=== PATIENT | female | born 1935 | race Caucasian/White ===

== ENCOUNTER 2016-10-19 17:15 | Emergency (ER) | payer MEDICARE, OTHER ==
[~2016-10-19] VITALS: Ht 165.1 cm; Wt 65.9 kg
[~2016-10-19 17:15] MED LIST: CALC500T21 OR; GLUC500C3 PO; MAGN30TA2; MAGN500T2; OCUVTAB PO; TRUS2SOL OU; VITA-13; VITA400C70 PO; [UNRECOGNIZED DRUG - OTHER] PO
[2016-10-19 17:19] VITALS: BP 226/93; PULSE 67; RESP 24; TEMP 97.4; O2SAT 97
[2017-03-11] MEDS ORDERED: OCUVTAB PO (15:41)
[2017-03-11] MEDS ORDERED: MAGN1TAB14 PO (15:41)
[2017-03-11] MEDS ORDERED: CALC1TAB12 PO (15:41)
[2017-03-11] MEDS ORDERED: DORZ2SOL15 EACH EYE (15:41)
[2017-03-11] MEDS ORDERED: TH GCAP PO (15:41)
[2017-03-11] MEDS ORDERED: BIOT1CAP2 PO (15:41)
[2017-03-11] MEDS ORDERED: VITA200C3 PO (15:41)
[2017-03-11] MEDS ORDERED: MULT1TAB46 (15:41)
== END 2016-10-19 19:22 | disposition left against medical advice (07) ==
LOC: NED 17:15
DX: R68.89 Other general symptoms and signs (principal)
CPT/HCPCS: 99281

== ENCOUNTER 2017-08-22 18:44 | Inpatient (IN) | payer MEDICARE, OTHER ==
[~2017-08-22] VITALS: Ht 165.1 cm; Wt 68.0 kg
[~2017-08-22 18:44] MED LIST changes: +BIOT1CAP2 PO; +CALC1TAB12 PO; -CALC500T21 OR; +DORZ2SOL15 EACH EYE; -GLUC500C3 PO; -MAGN30TA2; +MAGN400T3 PO; -MAGN500T2; +MULT1TAB46; +TH GCAP PO; -TRUS2SOL OU; -VITA-13; +VITA200C3 PO; -VITA400C70 PO
[2017-08-22 19:13] VITALS: BP 187/82; PULSE 66; RESP 16; TEMP 97.7; O2SAT 99
[2017-08-22 19:14] VITALS: PULSE 66; RESP 16; O2SAT 99
[2017-08-22] MEDS ORDERED: MORPHINE SULFATE 4 MG/ML INJ IV PUSH ONE (19:15)
[2017-08-22] MEDS ORDERED: SODIUM CHLORIDE 0.9% FLUSH 10 ML FLUSH IV FLUSH PRN ×2 (19:15→23:15)
[2017-08-22] MEDS ORDERED: ONDANSETRON HCL 4 MG/2 ML VIAL IVP ONE (19:15)
[2017-08-22 19:33] LABS: AUTOMATED NEUTROPHIL # 7.2 TH/MM3 (1.8-7.7); BASOPHIL % 0.5 % (0.0-2.0); EOSINOPHIL # 0.2 TH/MM3 (0-0.4); EOSINOPHIL % 2.3 % (0.0-4.0); HEMATOCRIT 41.2 % (35.0-46.0); HEMO FLAGS DIFF FINAL; LYMPH % 11.1 % (9.0-44.0); MEAN CELL VOLUME 92.3 FL (80.0-100.0); MEAN CORPUSCULAR HEMOGLOBIN 31.2 PG (27.0-34.0); MEAN CORPUSCULAR HGB CONC 33.8 % (32.0-36.0); MONO % 8.3 % (0.0-8.0); NEUT % 77.8 % (16.0-70.0); PLATELET COUNT 234 TH/MM3 (150-450); RED BLOOD COUNT 4.46 MIL/MM3 (4.00-5.30); RED CELL DISTRIBUTION WIDTH 13.9 % (11.6-17.2); WHITE BLOOD COUNT 9.2 TH/MM3 (4.0-11.0)
[2017-08-22 19:51] LABS: ANION GAP 7 MEQ/L (5-15); AST (GOT) 28 U/L (15-37); BICARBONATE 26.8 MEQ/L (21.0-32.0); BLOOD UREA NITROGEN 27 MG/DL (7-18); CHLORIDE 103 MEQ/L (98-107); GLOMERULAR FILTRATION RATE 42 ML/MIN (>89); POTASSIUM 3.5 MEQ/L (3.5-5.1); SODIUM (NA) 137 MEQ/L (136-145)
--- NOTE | 2017-08-22 19:51 | PD ---
HPI . Abdominal pain Chief Complaint: GI Complaint Time Seen by Provider: 19:28 Travel History International Travel<30 days: No Contact w/Intl Traveler<30days: No Traveled to known affect area: No History of Present Illness HPI Patient presents with chief complaint of upper abdominal pain. Onset was at 1: 30 PM today. She describes sharp pain which is "extreme." It is associated with 1 episode of vomiting. The vomiting did help her pain. Her pain is a more significant complaint for her than vomiting. She has an ostomy bag. She states that it has been functioning fairly normally. She states that her stool output is diminished but is present. She has not noted any abdominal bloating. Patient states that she has the colonoscopy because of ulcerative colitis. She further reports a history of previous small bowel obstructions. PFSH Past Medical History Arthritis: Yes Autoimmune Disease: No Blood Disorders: No Anxiety: Yes Depression: No Heart Rhythm Problems: No Cancer: No Cardiac Catheterization: No Cardiovascular Problems: No High Cholesterol: No Chemotherapy: No Chest Pain: No Congestive Heart Failure: No Diabetes: No Diminished Hearing: No Endocrine: No Gastrointestinal Disorders: Yes (ulcerative colitis) GERD: No Glaucoma: Yes Genitourinary: No Hepatitis: No Hiatal Hernia: No Hypertension: No Immune Disorder: No Implanted Vascular Access Dvce: Yes Medical other: Yes (ILEOSTOMY) Musculoskeletal: Yes Neurologic: No Psychiatric: No Reproductive: No Respiratory: No Myocardial Infarction: No Radiation Therapy: No Thyroid Disease: No Ulcer: No Menopausal: Yes Past Surgical History Abdominal Surgery: Yes (ILEOSTOMY) AICD: No Arteriovenous Shunt: No Cardiac Surgery: No Coronary Artery Bypass Graft: No Ear Surgery: No Endocrine Surgery: No Eye Surgery: Yes (GREGORY CATARACTS REMOVED) Genitourinary Surgery: No Gynecologic Surgery: Yes (left breast lumpectomy surgery for gregory ovarian cyst AND RIGHT BREAT LUMPEC ) Hysterectomy: Yes Insulin Pump: No Joint Replacement: Yes (right hip hardware) Neurologic Surgery: No Oral Surgery: No Pacemaker: No Thoracic Surgery: No Other Surgery: Yes (HIP SURGERY,1993,HYSTERECTOMY) Social History Alcohol Use: No Tobacco Use: No Substance Use: No Allergies-Medications (Allergen,Severity, Reaction): Coded Allergies: bacitracin (Unverified Allergy, Mild, 04/27/17) unknown reaction gramicidin D (Unverified Allergy, Mild, 04/27/17) unknown reaction neomycin (Unverified Allergy, Mild, 04/27/17) unknown reaction polymyxin B (Unverified Allergy, Mild, 04/27/17) unknown reaction hydromorphone (Unverified Adverse Reaction, Intermediate, nausea / dizzy, 04/27/17) Reported Meds & Prescriptions Reported Meds & Active Scripts Active Reported Biotin 1 Mg Cap 1 Mg PO Glucosamine & Chondroitin Cap (Glucosam/Chondr/Collagn/Hyalur) 1 Each Capsule 2 Tab PO DAILY Magnesium 400 Mg Tab 1,000 Mg PO DAILY Multi Vitamin Daily (Multiple Vitamin) 1 Tab Tab Vitamin E 200 Unit Cap 400 Units PO DAILY Calcium 500 +D (Calcium Carbonate-Cholecalciferol) 500-400 Mg-Unit Tab 1 Tab PO BID Ocuvite (Multiple Vitamins W/ Minerals) 1 Tab 1 Tab PO DAILY Dorzolamide-Timolol Opth Drops 22.3-6.8 Mg/Ml Soln 1 Drop EACH EYE BID [juice plus capsules] PO DAILY Review of Systems Except as stated in HPI: all other systems reviewed are Neg General / Constitutional: No: Fever, Chills Respiratory: No: Cough, Shortness of Breath Gastrointestinal: Positive: Nausea, Vomiting, Abdominal Pain, No: Diarrhea Genitourinary: No: Urgency, Frequency, Dysuria Physical Exam Narrative GENERAL: Awake and alert. She appears to be in mild to moderate distress. SKIN: warm/dry. Good color and turgor. HEAD: Normocephalic. Atraumatic. EYES: Pupils equal and round. No scleral icterus. No injection or drainage. ENT: No nasal bleeding or discharge. Mucous membranes pink and moist. NECK: Trachea midline. Full range of motion without pain.. CARDIOVASCULAR: Regular rate and rhythm. Heart sounds normal. RESPIRATORY: No accessory muscle use. Clear to auscultation. Breath sounds equal bilaterally. GASTROINTESTINAL: Abdomen soft. Diffuse upper abdominal tenderness which is mild. Bowel sounds increased. Nondistended. MUSCULOSKELETAL: No obvious deformities. NEUROLOGICAL: Awake and alert. No obvious cranial nerve deficits. Motor grossly within normal limits. Normal speech. PSYCHIATRIC: Appropriate mood and affect; insight and judgment normal. Data Data Last Documented VS Vital Signs Date Time Temp Pulse Resp B/P (MAP) Pulse Ox O2 Delivery O2 Flow Rate FiO2 08/22/17 19:14 66 16 99 08/22/17 19:13 97.7 Orders Orders Complete Blood Count With Diff (08/22/17 19:11) Comprehensive Metabolic Panel (08/22/17 19:11) Urinalysis - C+S If Indicated (08/22/17 19:11) Iv Access Insert/Monitor (08/22/17 19:11) Oxygen Administration (08/22/17 19:11) Oximetry (08/22/17 19:11) Lipase (08/22/17 19:11) Ct Abd/Pel W Iv Contrast(Rout) (08/22/17 19:11) Ecg Monitoring (08/22/17 19:11) Morphine Inj (Morphine Inj) (08/22/17 19:15) Ondansetron Inj (Zofran Inj) (08/22/17 19:15) Sodium Chloride 0.9% Flush (Ns Flush) (08/22/17 19:15) Sodium Chlor 0.9% 1000 Ml Inj (Ns 1000 M (08/22/17 20:30) Iohexol 350 Inj (Omnipaque 350 Inj) (08/22/17 21:04) Admit Order (Ed Use Only) (08/22/17 ) Vital Signs (Adult) Q4H (08/22/17 22:34) Diet Npo (08/23/17 Breakfast) Activity Oob With Assistance (08/22/17 22:34) Notify Dr: Other (08/22/17 22:34) Labs Laboratory Tests Test 08/22/17 19:14 08/22/17 21:10 White Blood Count 9.2 TH/MM3 Red Blood Count 4.46 MIL/MM3 Hemoglobin 13.9 GM/DL Hematocrit 41.2 % Mean Corpuscular Volume 92.3 FL Mean Corpuscular Hemoglobin 31.2 PG Mean Corpuscular Hemoglobin Concent 33.8 % Red Cell Distribution Width 13.9 % Platelet Count 234 TH/MM3 Mean Platelet Volume 8.5 FL Neutrophils (%) (Auto) 77.8 % Lymphocytes (%) (Auto) 11.1 % Monocytes (%) (Auto) 8.3 % Eosinophils (%) (Auto) 2.3 % Basophils (%) (Auto) 0.5 % Neutrophils # (Auto) 7.2 TH/MM3 Lymphocytes # (Auto) 1.0 TH/MM3 Monocytes # (Auto) 0.8 TH/MM3 Eosinophils # (Auto) 0.2 TH/MM3 Basophils # (Auto) 0.0 TH/MM3 CBC Comment DIFF FINAL Differential Comment Blood Urea Nitrogen 27 MG/DL Creatinine 1.22 MG/DL Random Glucose 131 MG/DL Total Protein 7.1 GM/DL Albumin 3.1 GM/DL Calcium Level 8.2 MG/DL Alkaline Phosphatase 80 U/L Aspartate Amino Transf (AST/SGOT) 28 U/L Alanine Aminotransferase (ALT/SGPT) 30 U/L Total Bilirubin 0.2 MG/DL Sodium Level 137 MEQ/L Potassium Level 3.5 MEQ/L Chloride Level 103 MEQ/L Carbon Dioxide Level 26.8 MEQ/L Anion Gap 7 MEQ/L Estimat Glomerular Filtration Rate 42 ML/MIN Lipase 399 U/L Urine Color YELLOW Urine Turbidity CLEAR Urine pH 5.0 Urine Specific [place] 1.035 Urine Protein TRACE mg/dL Urine Glucose (UA) NEG mg/dL Urine Ketones NEG mg/dL Urine Occult Blood SMALL Urine Nitrite NEG Urine Bilirubin NEG Urine Urobilinogen LESS THAN 2.0 MG/DL Urine Leukocyte Esterase NEG Urine RBC 1 /hpf Urine WBC 1 /hpf Urine Squamous Epithelial Cells <1 /hpf Urine Hyaline Casts 1 /lpf Urine Mucus FEW /lpf Microscopic Urinalysis Comment CULT NOT INDICATED MDM Medical Decision Making Medical Screen Exam Complete: Yes Emergency Medical Condition: Yes Differential Diagnosis Differential diagnosis of abdominal pain includes but is not limited to gastritis, pancreatitis, hepatitis, gastroenteritis, gallbladder disease, constipation, urinary retention, UTI, peptic ulcer disease, diverticulitis or appendicitis Narrative Course This patient presents complaining with upper abdominal pain associated with one episode of emesis. She has an ostomy bag secondary to ulcerative colitis. She has had a previous bowel obstruction. Routine labs have been ordered as well as a CT to rule out obstruction. Her pain will be treated with morphine/Zofran. CBC & BMP Diagram 08/22/17 19:14 Total Protein 7.1, Albumin 3.1 L, Calcium Level 8.2 L, Alkaline Phosphatase 80, Aspartate Amino Transf (AST/SGOT) 28, Alanine Aminotransferase (ALT/SGPT) 30, Total Bilirubin 0.2 lip 399 Renal function studies are relatively stable for this patient. Last Impressions Abdomen/Pelvis CT 08/22/17 191 Signed Impressions: Service Date/Time: Tuesday, August 22, 2017 20:38 - CONCLUSION: 1. 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 2. Status post colectomy. 3. Cystic areas in the left lobe of the liver. 4. Status post vertebroplasty. 5. Status post right hip arthroplasty. Jack Christopher MD She will be admitted for further evaluation of this abnormal CT. Diagnosis Primary Impression: Abdominal pain Qualified Codes: R10.10 - Upper abdominal pain, unspecified Admitting Information Admitting Physician Requests: Admit Condition: Stable Bianca Irby MD Aug 22, 2017 19:51
[2017-08-22 19:56] LABS: ALKALINE PHOSPHATASE 80 U/L (45-117); ALT (GPT) 30 U/L (10-53); TOTAL BILIRUBIN ADULT 0.2 MG/DL (0.2-1.0)
[2017-08-22] MEDS ORDERED: SODIUM CHLOR 0.9% 1000 ML INJ 1,000 ML IV ONE (20:30)
[2017-08-22] MEDS ORDERED: IOHEXOL 350 MG/ML 10 ML VIAL (for RAD DIAG) IVCONTRAST ONE (21:04)
[2017-08-22 21:33] LABS: BLOOD, URINE SMALL (NEG); COMMENT (UR) CULT NOT INDICATED; CULTURE IF INDICATED CULT NOT INDICATED; GLUCOSE,URINE NEG (NEG); HYALINE CAST, URINE 1 /lpf (RARE); KETONE, URINE NEG (NEG); MUCUS URINE FEW /lpf (OCC); NITRITE,URINE NEG (NEG); SQUAMOUS EPITHELIAL CELL URINE <1 /hpf (0-5); URINE COLOR YELLOW (YELLW/STRAW)
--- NOTE | 2017-08-22 21:38 | RADRPT ---
EXAM DATE/TIME: 08/22/2017 20:38 [facility] COMPARISON: CT ABDOMEN & PELVIS W CONTRAST, August 24, 2015, 14:43. INDICATIONS : Right sided pain surrounding patient's ileostomy. IV CONTRAST: 75 cc Omnipaque 350 (iohexol) IV ORAL CONTRAST: No oral contrast ingested. RADIATION DOSE: 6.64 CTDIvol (mGy) MEDICAL HISTORY : None SURGICAL HISTORY : Hysterectomy. Ileostomy, left breast lumpectomy ENCOUNTER: Initial ACUITY: 1 day PAIN SCALE: 7/10 LOCATION: Right abdomen TECHNIQUE: Volumetric scanning of the abdomen and pelvis was performed. Using automated exposure control and ad justment of the mA and/or kV according to patient size, radiation dose was kept as low as reasonably achievable to obtain optimal diagnostic quality images. DICOM format image data is available electro nically for review and comparison. FINDINGS: LOWER LUNGS: The visualized lower lungs are clear. LIVER: There are 2 adjacent cysts at the medial segment of the left lobe of the liver measuring up to 2.2 cm . There is minimal intrahepatic biliary duct dilatation. There is a 8.0 x 4.4 x 4.7 cm cystic area se en in the right lower quadrant in a hernia adjacent to an ileostomy. The gallbladder is not seen in i ts normal location. This likely represents the gallbladder displaced into the hernia. If this is the case, the gallbladder is distended. SPLEEN: Normal size without lesion. PANCREAS: Within normal limits. KIDNEYS: Normal in size and shape. There is no mass, stone or hydronephrosis. ADRENAL GLANDS: Within normal limits. VASCULAR: There is no aortic aneurysm. There are scattered arterial calcification seen throughout the arterial system. 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 The celiac artery appears grossly normal. BOWEL/MESENTERY: There is an ileostomy in the right lower quadrant. The patient is status post colectomy. There is billy e bowel seen adjacent to the ostomy consistent with a hernia containing nondistended small bowel. Aga in noted is a cystic area in the hernia thought to likely be related to the gallbladder. Significantl y dilated small bowel is not seen. ABDOMINAL WALL: Again noted is the ileostomy site in the right lower quadrant. There is a hernia defect measuring up to 3.9 cm in the right lower quadrant in the region of the ostomy. RETROPERITONEUM: There is no lymphadenopathy. BLADDER: No wall thickening or mass. REPRODUCTIVE: The patient is status post hysterectomy. INGUINAL: There is no lymphadenopathy or hernia. MUSCULOSKELETAL: The patient is status post vertebroplasty at L4. There is a right hip prosthesis present. CONCLUSION: 1. 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 2. Status post colectomy. 3. Cystic areas in the left lobe of the liver. 4. Status post vertebroplasty. 5. Status post right hip arthroplasty. Jack Christopher MD on August 22, 2017 at 21:23 Board Certified Radiologist. This report was verified electronically.
[2017-08-22 22:00] VITALS: BP 188/76; PULSE 66; RESP 16; O2SAT 99
[2017-08-22] MEDS ORDERED: ACETAMINOPHEN 325 MG TAB PO PRN (23:15)
[2017-08-22] MEDS ORDERED: SENNOSIDES 8.6 MG TAB PO PRN (23:15)
[2017-08-22] MEDS ORDERED: MAGNESIUM HYDROXIDE SUSP 30 ML CUP PO PRN (23:15)
[2017-08-22] MEDS ORDERED: LACTULOSE SYRUP 20 GM/30 ML CUP PO PRN (23:15)
[2017-08-22] MEDS ORDERED: NALOXONE HCL 0.4 MG/ML AMP IV PUSH PRN (23:15)
[2017-08-22] MEDS ORDERED: BISACODYL 10 MG SUPP RECTAL PRN (23:15)
[2017-08-22] MEDS: SODIUM CHLOR 0.9% 1000 ML INJ 1,000 ML IV SCH (23:30)
--- NOTE | 2017-08-22 23:55 | HHI.HP ---
[facility] Service [place] [facility] Primary Care Physician Evan Mccurdy MD Admission Diagnosis abd pain, vomiting, ? hernia containing gallbladder Diagnoses: Travel History International Travel<30 Days: No Contact w/Intl Traveler <30 Da: No Traveled to Known Affected Are: No History of Present Illness 82-year-old female with a past medical history significant for ulcerative colitis presents with severe onset of abdominal pain. The patient reports she was eating lunch when she had intractable abdominal pain. Denies nausea/ emesis. She states the pain is in her right lower quadrant and is steady. She is status post colectomy with ileostomy in 2011 for ulcerative colitis. She has a known peristomal hernia that she has previously had evaluated and was told it was nonoperable. CT of the abdomen and pelvis revealed a peristomal hernia and low right lower quadrant containing nondistended small bowel and displaced distended gallbladder and the hernia sac. Review of Systems Denies fever or chills Denies blurry vision, otorrhea, rhinorrhea Denies sore throat and cough No chest pain, palpitations, shortness of breath Positive abdominal pain Denies constipation/diarrhea/nausea/vomiting Denies muscle pain/weakness No rashes Past Family Social History Past Medical History Ulcerative colitis Glaucoma Past Surgical History Colectomy with end ileostomy Hysterectomy Right hip replacement Reported Medications Reported Meds & Active Scripts Active Reported Biotin 1 Mg Cap 1 Mg PO Glucosamine & Chondroitin Cap (Glucosam/Chondr/Collagn/Hyalur) 1 Each Capsule 2 Tab PO DAILY Magnesium 400 Mg Tab 1,000 Mg PO DAILY Multi Vitamin Daily (Multiple Vitamin) 1 Tab Tab Vitamin E 200 Unit Cap 400 Units PO DAILY Calcium 500 +D (Calcium Carbonate-Cholecalciferol) 500-400 Mg-Unit Tab 1 Tab PO BID Ocuvite (Multiple Vitamins W/ Minerals) 1 Tab 1 Tab PO DAILY Dorzolamide-Timolol Opth Drops 22.3-6.8 Mg/Ml Soln 1 Drop EACH EYE BID Allergies: Coded Allergies: bacitracin (Unverified Allergy, Mild, 04/27/17) unknown reaction gramicidin D (Unverified Allergy, Mild, 04/27/17) unknown reaction neomycin (Unverified Allergy, Mild, 04/27/17) unknown reaction polymyxin B (Unverified Allergy, Mild, 04/27/17) unknown reaction hydromorphone (Unverified Adverse Reaction, Intermediate, nausea / dizzy, 04/27/17) Family History Denies family history of coronary artery disease or diabetes mellitus Social History Rare alcohol. Never smoker. Denies illicit drugs. Physical Exam Vital Signs Vital Signs Date Time Temp Pulse Resp B/P (MAP) Pulse Ox O2 Delivery O2 Flow Rate FiO2 08/22/17 22:00 66 16 188/76 (113) 99 08/22/17 19:14 66 16 99 08/22/17 19:13 97.7 66 16 187/82 (117) 99 Physical Exam GENERAL: female lying in bed SKIN: No rashes, ecchymoses or lesions. Cool and dry. HEAD: Atraumatic. Normocephalic. No temporal or scalp tenderness. EYES: Pupils equal round and reactive. Extraocular motions intact. No scleral icterus. No injection or drainage. ENT: Nose without bleeding, purulent drainage or septal hematoma. Throat without erythema, tonsillar hypertrophy or exudate. Uvula midline. Airway patent. NECK: Trachea midline. No JVD or lymphadenopathy. Supple, nontender, no meningeal signs. CARDIOVASCULAR: Regular rate and rhythm without murmurs, gallops, or rubs. RESPIRATORY: Clear to auscultation. Breath sounds equal bilaterally. No wheezes , rales, or rhonchi. GASTROINTESTINAL: Nondistended. Exquisitely tender to palpation in the right lower quadrant. Palpable mass in the right lower quadrant adjacent to stoma. Ileostomy in place, pink with stool output. MUSCULOSKELETAL: Extremities without clubbing, cyanosis, or edema. No joint tenderness, effusion, or edema noted. No calf tenderness. NEUROLOGICAL: Awake and alert. Cranial nerves II through XII intact. Motor and sensory grossly within normal limits. Normal speech. Laboratory Laboratory Tests Test 08/22/17 19:14 08/22/17 21:10 White Blood Count 9.2 Red Blood Count 4.46 Hemoglobin 13.9 Hematocrit 41.2 Mean Corpuscular Volume 92.3 Mean Corpuscular Hemoglobin 31.2 Mean Corpuscular Hemoglobin Concent 33.8 Red Cell Distribution Width 13.9 Platelet Count 234 Mean Platelet Volume 8.5 Neutrophils (%) (Auto) 77.8 Lymphocytes (%) (Auto) 11.1 Monocytes (%) (Auto) 8.3 Eosinophils (%) (Auto) 2.3 Basophils (%) (Auto) 0.5 Neutrophils # (Auto) 7.2 Lymphocytes # (Auto) 1.0 Monocytes # (Auto) 0.8 Eosinophils # (Auto) 0.2 Basophils # (Auto) 0.0 CBC Comment DIFF FINAL Differential Comment Blood Urea Nitrogen 27 Creatinine 1.22 Random Glucose 131 Total Protein 7.1 Albumin 3.1 Calcium Level 8.2 Alkaline Phosphatase 80 Aspartate Amino Transf (AST/SGOT) 28 Alanine Aminotransferase (ALT/SGPT) 30 Total Bilirubin 0.2 Sodium Level 137 Potassium Level 3.5 Chloride Level 103 Carbon Dioxide Level 26.8 Anion Gap 7 Estimat Glomerular Filtration Rate 42 Lipase 399 Urine Color YELLOW Urine Turbidity CLEAR Urine pH 5.0 Urine Specific [place] 1.035 Urine Protein TRACE Urine Glucose (UA) NEG Urine Ketones NEG Urine Occult Blood SMALL Urine Nitrite NEG Urine Bilirubin NEG Urine Urobilinogen LESS THAN 2.0 Urine Leukocyte Esterase NEG Urine RBC 1 Urine WBC 1 Urine Squamous Epithelial Cells <1 Urine Hyaline Casts 1 Urine Mucus FEW Microscopic Urinalysis Comment CULT NOT INDICATED Result Diagram: 08/22/17191308/22/171913 Caprini VTE Risk Assessment Caprini VTE Risk Assessment: Mod/High Risk (score >= 2) Caprini Risk Assessment Model Point Value = 1 Point Value = 2 Point Value = 3 Point Value = 5 Age 41-60 Minor surgery BMI > 25 kg/m2 Swollen legs Varicose veins or History of unexplained or recurrent spontaneous Oral contraceptives or hormone replacement Sepsis (< 1 month) Serious lung disease, including pneumonia (< 1 month) Abnormal pulmonary function Acute myocardial infarction Congestive heart failure (< 1 month) History of inflammatory bowel disease Medical patient at bed rest Age 61-74 Arthroscopic surgery Major open surgery (> 45 min) Laparoscopic surgery (> 45 min) Malignancy Confined to bed (> 72 hours) Immobilizing plaster cast Central venous access Age >= 75 History of VTE Family history of VTE Factor V Leiden Prothrombin [id number] Lupus anticoagulant Anticardiolipin antibodies Elevated serum homocysteine Heparin-induced thrombocytopenia Other congenital or acquired thrombophilia Stroke (< 1 month) Elective arthroplasty Hip, pelvis, or leg fracture Acute spinal cord injury (< 1 month) Prophylaxis Regimen Total Risk Factor Score Risk Level Prophylaxis Regimen 0-1 Low Early ambulation 2 Moderate Order ONE of the following: *Sequential Compression Device (SCD) *Heparin 5000 units SQ BID 3-4 Higher Order ONE of the following medications: *Heparin 5000 units SQ TID *Enoxaparin/Lovenox 40 mg SQ daily (WT < 150 kg, CrCl > 30 mL/min) *Enoxaparin/Lovenox 30 mg SQ daily (WT < 150 kg, CrCl > 10-29 mL/min) *Enoxaparin/Lovenox 30 mg SQ BID (WT < 150 kg, CrCl > 30 mL/min) AND/OR *Sequential Compression Device (SCD) 5 or more Highest Order ONE of the following medications: *Heparin 5000 units SQ TID (Preferred with Epidurals) *Enoxaparin/Lovenox 40 mg SQ daily (WT < 150 kg, CrCl > 30 mL/min) *Enoxaparin/Lovenox 30 mg SQ daily (WT < 150 kg, CrCl > 10-29 mL/min) *Enoxaparin/Lovenox 30 mg SQ BID (WT < 150 kg, CrCl > 30 mL/min) AND *Sequential Compression Device (SCD) Assessment and Plan Assessment and Plan Assessment/plan: 1. Intractable abdominal pain/peristomal hernia CT abdomen/pelvis significant for peristomal hernia containing nondistended small bowel and displaced distended gallbladder and the hernia sac Pain control with morphine Nothing by mouth General surgery consulted, appreciate recommendations 2. Glaucoma Continue home eyedrops 3. CKD Cr 1.22, baseline for patient Avoid nephrotoxic agents Monitor renal function FEN NPO NS at 75 cc/hr Electrolytes: monitor and replete prn SCDs Case discussed with ER physician at length Physician Certification 2 Midnight Certification Type: Admission for Inpatient Services Order for Inpatient Services The services are ordered in accordance with Medicare regulations or non- Medicare payer requirements, as applicable. In the case of services not specified as inpatient-only, they are appropriately provided as inpatient services in accordance with the 2-midnight benchmark. Estimated LOS (days): 2 2 days is the estimated time the patient will need to remain in the hospital, assuming treatment plan goals are met and no additional complications. Post-Hospital Plan: Not yet determined Tyra Temple MD Aug 22, 2017 23:55
[2017-08-23] VITALS: BP 162/67; PULSE 70; RESP 17; TEMP 96.1; O2SAT 98
[2017-08-23] MEDS: ONDANSETRON HCL 4 MG/2 ML VIAL IVP PRN ×2 (01:03→09:13)
[2017-08-23] MEDS: MORPHINE SULFATE 2 MG/ML INJ IV PUSH PRN ×5 (01:06→18:45)
[2017-08-23 07:58] LABS: BASOPHIL % 0.1 % (0.0-2.0); EOSINOPHIL % 0.2 % (0.0-4.0); HEMATOCRIT 37.2 % (35.0-46.0); HEMO FLAGS DIFF FINAL; LYMPH % 9.2 % (9.0-44.0); LYMPHOCYTE # 0.8 TH/MM3 (1.0-4.8); MEAN CELL VOLUME 92.1 FL (80.0-100.0); MEAN CORPUSCULAR HGB CONC 34.7 % (32.0-36.0); MONO % 10.2 % (0.0-8.0); NEUT % 80.3 % (16.0-70.0); PLATELET COUNT 189 TH/MM3 (150-450); RED BLOOD COUNT 4.04 MIL/MM3 (4.00-5.30); RED CELL DISTRIBUTION WIDTH 13.9 % (11.6-17.2); WHITE BLOOD COUNT 8.7 TH/MM3 (4.0-11.0)
[2017-08-23 08:00] VITALS: BP 151/66; PULSE 72; RESP 16; TEMP 98.1; O2SAT 93
[2017-08-23] MEDS: DOCUSATE SODIUM 50 MG/SENNA 8.6 MG TAB PO SCH ×2 (08:14→21:00)
[2017-08-23] MEDS: SODIUM CHLORIDE 0.9% FLUSH 10 ML FLUSH IV FLUSH SCH ×2 (08:14→21:00)
[2017-08-23 08:46] LABS: ALKALINE PHOSPHATASE 99 U/L (45-117); ALT (GPT) 51 U/L (10-53); ANION GAP 6 MEQ/L (5-15); AST (GOT) 68 U/L (15-37); BICARBONATE 26.5 MEQ/L (21.0-32.0); BLOOD UREA NITROGEN 17 MG/DL (7-18); CHLORIDE 107 MEQ/L (98-107); GLOMERULAR FILTRATION RATE 58 ML/MIN (>89); POTASSIUM 3.5 MEQ/L (3.5-5.1); SODIUM (NA) 139 MEQ/L (136-145); TOTAL BILIRUBIN ADULT 0.6 MG/DL (0.2-1.0)
--- NOTE | 2017-08-23 09:27 | HHI.PR ---
Subjective Remarks Not Seen I have been notified the patient will be seen by Her Primary Care Physician today. removed from my list. Objective Result Diagram: 08/23/17 0643 08/23/17 0643 Aditya Botello MD Aug 23, 2017 09:27
[2017-08-23] MEDS: DORZOLAMIDE/TIMOLOL OPTH SOLN 10 ML BTL EACH EYE SCH ×2 (11:43→22:56)
[2017-08-23 12:00] VITALS: BP 179/74; PULSE 70; RESP 17; TEMP 97.3; O2SAT 95
[2017-08-23] MEDS: SODIUM CHLOR 0.9% 1000 ML INJ 1,000 ML IV SCH (13:01)
--- NOTE | 2017-08-23 13:24 | PD.CONS ---
cc: Mykel Ferrer MD; Freedom Brambila MD; Evan Mccurdy MD [facility] Service Dr. Ferrer Consultation note General Surgery Consult Requested By Dr. 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 Brambila, small bowel obstruction, arthritis, anxiety and glaucoma. She was in her normal state of health until yesterday at 1:30pm after eating lunch. She developed sharp, sudden abdominal pain with nausea and one episode of emesis. Since this episode she has noticed a decrease in her ileostomy output. A CT abdomen and pelvis was obtained which shows an ileostomy in the right lower quadrant with a parastomal hernia which contains the gallbladder in the hernia sac. A General Surgery consultation has been requested. Review of Systems Constitutional: COMPLAINS OF: Change in appetite, DENIES: Fatigue Endocrine: DENIES: Polydipsia, Polyuria Eyes: DENIES: Diplopia Ears, nose, mouth, throat: DENIES: Hearing loss Respiratory: DENIES: Cough Cardiovascular: DENIES: Chest pain Gastrointestinal: COMPLAINS OF: Abdominal pain ( right upper quadrant), Nausea , Vomiting Genitourinary: DENIES: Urinary frequency Musculoskeletal: DENIES: Joint Swelling Integumentary: DENIES: Pruritus Hematologic/lymphatic: DENIES: Bruising Immunologic/allergic: DENIES: Eczema Neurologic: DENIES: Abnormal gait, Headache Psychiatric: DENIES: Mood changes, Depression, Hallucinations Past Family Social History Past Medical History Ulcerative colitis Small bowel obstruction Arthritis Anxiety Glaucoma Past Surgical History Protocolectomy [place] [address] Brambila Left breast lumpectomy by Dr. Ferrer Right hip replacement History Reported Medications Calcium Magnesium Biotene Vitamin E Multivitamin Glucosamine Dorzolamide-Timolol Allergies: Coded Allergies: bacitracin (Unverified Allergy, Mild, 04/27/17) unknown reaction gramicidin D (Unverified Allergy, Mild, 04/27/17) unknown reaction neomycin (Unverified Allergy, Mild, 04/27/17) unknown reaction polymyxin B (Unverified Allergy, Mild, 04/27/17) unknown reaction hydromorphone (Unverified Adverse Reaction, Intermediate, nausea / dizzy, 04/27/17) Active Ordered Medications Current Medications Medications (Trade) Dose Ordered Sig/Zoe Route Start Time Stop Time Status Last Admin Sodium Chloride 1,000 ml @ 75 mls/hr [id number] IV 08/22/17 23:11 08/23/17 13:01 (NS Flush) 2 ml UNSCH PRN IV FLUSH 08/22/17 23:15 (NS Flush) 2 ml BID IV FLUSH 08/23/17 09:00 (Tylenol) 650 mg Q4H PRN PO 08/22/17 23:15 (Zofran Inj) 4 mg Q6H PRN IVP 08/22/17 23:15 08/23/17 09:13 (Narcan Inj) 0.4 mg UNSCH PRN IV PUSH 08/22/17 23:15 (Natasha-Colace) 1 tab BID PO 08/23/17 09:00 (Milk Of Magnesia Liq) 30 ml Q12H PRN PO 08/22/17 23:15 (Senokot) 17.2 mg Q12H PRN PO 08/22/17 23:15 (Dulcolax Supp) 10 mg DAILY PRN RECTAL 08/22/17 23:15 (Lactulose Liq) 30 ml DAILY PRN PO 08/22/17 23:15 (Cosopt 2-0.5% Opth Soln) 1 drop BID EACH EYE 08/23/17 09:00 08/23/17 11:43 (Morphine Inj) 2 mg Q4H PRN IV PUSH 08/22/17 23:45 08/23/17 13:03 Family History Noncontributory Social History Denies tobacco use Denies EtOH use Denies substance abuse Lives at home alone. Physical Exam Vital Signs Vital Signs Date Time Temp Pulse Resp B/P (MAP) Pulse Ox O2 Delivery O2 Flow Rate FiO2 08/23/17 12:00 97.3 70 17 179/74 (109) 95 08/23/17 08:00 98.1 72 16 151/66 (94) 93 08/23/17 00:02 08/23/17 00:00 96.1 70 17 162/67 (98) 98 08/22/17 22:00 66 16 188/76 (113) 99 08/22/17 19:14 66 16 99 08/22/17 19:13 97.7 66 16 187/82 (117) 99 Physical Exam GENERAL: 82 year old female resting in bed in mild acute distress from nausea. SKIN: Warm and dry. HEAD: Atraumatic. Normocephalic. EYES: Pupils equal and round. No scleral icterus. No injection or drainage. ENT: No nasal bleeding or discharge. Mucous membranes pink and moist. NECK: Trachea midline. CARDIOVASCULAR: Regular rate and rhythm. RESPIRATORY: No accessory muscle use. Clear to auscultation. Breath sounds equal bilaterally. GASTROINTESTINAL: Ileostomy in place with liquid stool in appliance; large parastomal hernia ---very tender to palpation. Large well healed midline scar. MUSCULOSKELETAL: Extremities without clubbing, cyanosis, or edema. No obvious deformities. NEUROLOGICAL: Awake and alert. No obvious cranial nerve deficits. Motor grossly within normal limits. Five out of 5 muscle strength in the arms and legs. Normal speech. PSYCHIATRIC: Appropriate mood and affect; insight and judgment normal. Laboratory Laboratory Tests Test 08/22/17 19:14 08/22/17 21:10 08/23/17 06:43 White Blood Count 9.2 8.7 Red Blood Count 4.46 4.04 Hemoglobin 13.9 12.9 Hematocrit 41.2 37.2 Mean Corpuscular Volume 92.3 92.1 Mean Corpuscular Hemoglobin 31.2 32.0 Mean Corpuscular Hemoglobin Concent 33.8 34.7 Red Cell Distribution Width 13.9 13.9 Platelet Count 234 189 Mean Platelet Volume 8.5 8.7 Neutrophils (%) (Auto) 77.8 80.3 Lymphocytes (%) (Auto) 11.1 9.2 Monocytes (%) (Auto) 8.3 10.2 Eosinophils (%) (Auto) 2.3 0.2 Basophils (%) (Auto) 0.5 0.1 Neutrophils # (Auto) 7.2 7.0 Lymphocytes # (Auto) 1.0 0.8 Monocytes # (Auto) 0.8 0.9 Eosinophils # (Auto) 0.2 0.0 Basophils # (Auto) 0.0 0.0 CBC Comment DIFF FINAL DIFF FINAL Differential Comment Blood Urea Nitrogen 27 17 Creatinine 1.22 0.93 Random Glucose 131 105 Total Protein 7.1 6.3 Albumin 3.1 2.8 Calcium Level 8.2 7.7 Alkaline Phosphatase 80 99 Aspartate Amino Transf (AST/SGOT) 28 68 Alanine Aminotransferase (ALT/SGPT) 30 51 Total Bilirubin 0.2 0.6 Sodium Level 137 139 Potassium Level 3.5 3.5 Chloride Level 103 107 Carbon Dioxide Level 26.8 26.5 Anion Gap 7 6 Estimat Glomerular Filtration Rate 42 58 Lipase 399 Urine Color YELLOW Urine Turbidity CLEAR Urine pH 5.0 Urine Specific Ola 1.035 Urine Protein TRACE Urine Glucose (UA) NEG Urine Ketones NEG Urine Occult Blood SMALL Urine Nitrite NEG Urine Bilirubin NEG Urine Urobilinogen LESS THAN 2.0 Urine Leukocyte Esterase NEG Urine RBC 1 Urine WBC 1 Urine Squamous Epithelial Cells <1 Urine Hyaline Casts 1 Urine Mucus FEW Microscopic Urinalysis Comment CULT NOT INDICATED Result Diagram: 08/23/1743 08/23/1743 Imaging Last 48 hours Impressions Abdomen/Pelvis CT 08/22/17 191 Signed Impressions: Service Date/Time: Tuesday, August 22, 2017 20:38 - CONCLUSION: 1. 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 2. Status post colectomy. 3. Cystic areas in the left lobe of the liver. 4. Status post vertebroplasty. 5. Status post right hip arthroplasty. Jack Christopher MD Assessment and Plan Assessment and Plan 82 year old female with large parastomal hernia with now contains the gallbladder -Will plan for OR tomorrow for open cholecystectomy; parastomal hernia repair with possible mesh; possible revision of ileostomy with Dr. Ferrer -Clear liquids; NPO after MN -Zosyn -IVF -Hold all anticoagulation -Dr. Brambila has been notified -Thank you for this consult; We will continue to follow Discussed Condition With Dr. Carissa Goldberg Attending Statement PROGRESS NOTE FOR SURGICAL ATTENDING, DR. MYKEL FERRER patient seen examined I had treated her for breast cancer a few years back Patient has a very unusual finding of an incarcerated gallbladder in a parastomal hernia The gallbladder can be palpated just under the skin right next to the ileostomy it is strangulated in the hernia She will require cholecystectomy and repair of this parastomal hernia this was discussed in detail with the patient I reviewed the case with Dr. Freedom Brambila the surgeon who performed her total colectomy she appears understand the plan will proceed to the operating room I agree with above assessment and plan. The exam, history, and the medical decision-making described in the above note were completed with the assistance of the mid-level provider. I reviewed and agree with the findings presented. I attest that I had a [id number] encounter with the patient on the same day, and personally performed and documented my assessment and findings in the medical record. The following services were provided during this hospital visit: Chart data review, vital sign assessments/reviewing monitor data Review of consultations notes if present. Medication orders/review and/or management Ordering and/or reviewing lab tests Ordering and/or interpreting/reviewing x-rays and/or diagnostic studies Care of the patient and discussion of the patient with the care team Documentation time To help prompt me to consider important information that might be impacting today's encounter and assessment, information from prior notes written by myself or my colleagues may have been "brought forward/copy and pasted" into today's note. Isabella Cano Aug 23, 2017 13:24 Mykel Ferrer MD Aug 24, 2017 16:33
--- NOTE | 2017-08-23 13:31 | MH ---
cc: VEL ESTRADA M.D. DATE OF ADMISSION: 08/22/2017 ADMISSION DIAGNOSIS Abdominal pain. HISTORY OF PRESENT ILLNESS This 82-year-old white female well-known to the undersigned physician has a history of ulcerative colitis. She underwent a total colectomy and has a ileostomy in the right lower quadrant of the abdomen. The patient has a very large peristomal hernia. The patient contacted the undersigned physician on the evening prior to admission complaining of severe abdominal pain which began about noon on that day. The patient had eaten lunch and was feeling fine and she had the sudden onset of pain. She had some mild nausea but no emesis. She states that this pain is different than the pain that has occurred in the past when she has had incarceration of the stomal hernia, this is a more severe pain. She states that there was liquid stool in her ostomy bag. She had no chest pain, no palpitations, no headaches, no lightheadedness or dizziness. No fever, chills, night sweats. She had no visual changes, lower extremity edema, palpitations. The patient was instructed to report to this facility for further evaluation and treatment. PAST MEDICAL HISTORY Her past medical history is significant for: 1. Ulcerative colitis for which she underwent the total colectomy performed by Dr. Brambila. 2. She has the ileostomy with a large peristomal hernia. 3. Osteoporosis with history of compression fractures of the spine. 4. History of breast cancer 5. Glaucoma 6. Generalized osteoarthritis 7. History of small bowel obstruction due to parastomal hernia 8. Chronic kidney disease stage III SURGICAL HISTORY 1. Hysterectomy-2001 2. Bilateral cataract removal with lens implants 3. Right total hip replacement 4. Total colectomy with ileostomy-2010 5. T6, T7 & T8 kyphoplasty-2011 6. Tonsillectomy 7. Appendectomy-1976 8. Right breast lumpectomy The patient otherwise has no chronic medical problems. CURRENT MEDICATIONS 1. Calcium carbonate 500 mg one tablet twice daily. 2. Dorzolamide/Timolol eyedrops 22.3-6.8 mg per mL one drop in each eye twice daily. 3. Magnesium 400 mg daily. 4. Biotin 1 mg daily. 5. Vitamin E 400 mg daily. 6. Ocuvite one tablet daily. 7. Glucosamine chondroitin two tablets daily. ALLERGIES She has allergies to BACITRACIN, GRAMICIDIN, HYDROMORPHONE, NEOMYCIN, POLYMYXIN B. FAMILY HISTORY Noncontributory. SOCIAL HISTORY She is . She lives alone. She has no children. She does have a cousin who lives in [place], but in general the patient has no local family or support. REVIEW OF SYSTEMS Negative except for what is outlined above. PHYSICAL EXAMINATION VITAL SIGNS: Upon arrival to the emergency department her blood pressure is 187/82 with a heart rate of 66, respirations 16, temperature 97.7 degrees Fahrenheit. At the current time blood pressure is 151/66, heart rate is 72, respirations 16, temperature 98.1 degrees Fahrenheit. GENERAL: This is a well-nourished, well-developed elderly white female lying in bed in mild discomfort due to abdominal pain. HEENT: Pupils equal, round, reactive to light. Extraocular movements are intact. Sclerae anicteric. Nares patent without discharge. Mouth and throat are clear. Mucous membranes are dry. NECK: The neck is supple without lymphadenopathy, JVD, bruits or thyromegaly. CARDIOVASCULAR: Regular rate and rhythm without murmurs, rubs or gallops. LUNGS: Clear to auscultation. ABDOMEN: Reveals ileostomy in the right superior lower quadrant. There is liquid stool in the bag. There is moderate distension especially on the right side of the abdomen. There is tenderness to palpation in the right upper and lower quadrants without guarding or rebound. The abdomen is generally soft. There are bowel sounds present. No masses. No CVAT. LOWER EXTREMITIES: Reveal no appreciable edema. No calf tenderness. No Homans' sign. NEUROLOGIC: Nonfocal. SKIN: Warm and dry. No significant rashes or lesions. LABORATORY DATA The white blood cell count was 9.2, hemoglobin 13.9, hematocrit 41.2, platelet count was 234,000. Comprehensive metabolic profile was significant for BUN of 27, creatinine of 1.22, glucose was elevated at 131, calcium was low at 8.2, albumin was low at 3.1, lipase was 399 which was elevated. Urinalysis revealed specific gravity 1.035, trace protein, pH 5.0, small occult blood. IMAGING STUDIES CT scan of the abdomen and pelvis revealed ileostomy in the right lower quadrant with a peristomal hernia containing nondistended small bowel and a cystic area thought likely to be a displaced distended gallbladder in the hernia sac, status post colectomy, cystic area in the left lobe of the liver, status post vertebroplasty, status post right hip arthroplasty. IMPRESSION AND PLAN 1. This elderly 82-year-old white female presented with abdominal pain. Based on the CT scan there is concern of a entrapped gallbladder within the hernia sac to her peristomal hernia. The patient will be admitted to a medical-surgical bed, placed on IV fluids, made n.p.o. Surgery was consulted. Dr. Ferrer has seen the patient and is anticipating surgery tomorrow. The patient has asked that he consult with Dr. Brambila who is her colorectal surgeon, which he will do prior to the procedure. Otherwise, will monitor the patient's blood pressure readings and will provide antihypertensive therapy if needed. Monitor renal function and electrolytes and provide antiemetics and narcotic and analgesics as needed for pain control. MD ROSA MARIA Munoz/MARYLOU /12:40 PM /12:54 PM MTDMaury
[2017-08-23] MEDS: ONDANSETRON HCL 4 MG/2 ML VIAL IV PUSH PRN ×2 (14:22→18:46)
--- NOTE | 2017-08-23 15:51 | PD.WCN.NOT ---
Wound Consult Description: Consult for OSTOMY MANAGEMENT of ileostomy per Dr. Temple Communicated with: Patient Tyra Trinidad, farm machinery erector Recommendation: Use adhesive remover when taking off wafer Cleanse peristomal skin with water only and pat dry Apply Cavilon skin prep to peristomal skin and allow to dry before placing new barrier Additional Information: Patient seen on [address] [place] [address] for ostomy assessment and teaching. Ostomy Type: Ileostomy Complete: Other (Cavilon skin prep given for next appliance change) Educated patient on: Using water only to cleanse the peristomal skin instead of soap for skin breakdown noted. Additional information Patient seen on [address] [place] [address] for ostomy assessment and teaching. Patient was falling asleep during assessment and patient was not able to stay awake to finish her sentences. Stoma is noted to the right side abdomen with peristomal hernia, erythema, and scabbed areas surrounding barrier. Patient states that she brought her own supplies in. Barrier in use is Marion clear with clip. Patient asked for skin prep that resume writer obtained and gave to patient for next barrier change. Tyra Trinidad RN visited patient when resume writer was leaving patient room. Plans were made to follow up on patient tomorrow 08/24/[address] Ferrer. Velia Dunlap [facility] Aug 23, 2017 15:51
[2017-08-23 16:00] VITALS: BP 171/74; PULSE 63; RESP 17; TEMP 96.5; O2SAT 97
[2017-08-23] MEDS: PIPERACIL-TAZO 3.375 GM PREMIX 50 ML IV SCH ×2 (16:30→22:58)
[2017-08-23] MEDS ORDERED: cloNIDine HCL 0.1 MG TAB PO PRN (18:30)
[2017-08-24 00:09] VITALS: BP 164/60; PULSE 68; RESP 20; TEMP 97.3; O2SAT 92
[2017-08-24] MEDS ORDERED: SODIUM CHLORID 0.9% 500 ML IV PRN (00:45)
[2017-08-24] MEDS ORDERED: LACTATED RINGER'S 1000 ML IV PRN (00:45)
[2017-08-24] MEDS: SODIUM CHLOR 0.9% 1000 ML INJ 1,000 ML IV SCH ×3 (03:02→20:40)
[2017-08-24 04:00] VITALS: BP 160/65; PULSE 66; RESP 20; TEMP 97.7; O2SAT 96
[2017-08-24] MEDS: PIPERACIL-TAZO 3.375 GM PREMIX 50 ML IV SCH ×3 (06:15→23:03)
[2017-08-24] MEDS: SODIUM CHLORIDE 0.9% FLUSH 10 ML FLUSH IV FLUSH SCH ×2 (07:56→20:38)
[2017-08-24] MEDS: DOCUSATE SODIUM 50 MG/SENNA 8.6 MG TAB PO SCH ×2 (07:56→20:39)
[2017-08-24] MEDS: DORZOLAMIDE/TIMOLOL OPTH SOLN 10 ML BTL EACH EYE SCH ×2 (07:57→20:41)
[2017-08-24 08:00] VITALS: BP 155/70; PULSE 72; RESP 17; TEMP 97.1; O2SAT 97
[2017-08-24] MEDS ORDERED: BUPIVACAINE/EPINEPHRINE 0.5% PF 30 ML VIAL ONE (08:01)
[2017-08-24] MEDS ORDERED: ceFAZolin 2 GM PREMIX 0 ML ONE (08:01)
[2017-08-24] MEDS ORDERED: LIDOCAINE 1%/EPINEPHrine 1:100,000 SOLN 20 ML VIAL ONE (08:01)
--- NOTE | 2017-08-24 09:10 | HHI.PR ---
Subjective Remarks NPO for OR. Pain in abdomen improved but still severe with movement. Denies Nausea at present. No chest Pain or SOB. Current Medications Medications (Trade) Dose Ordered Sig/Zoe Route Start Time Stop Time Status Last Admin Sodium Chloride 1,000 ml @ 75 mls/hr [id number] IV 08/22/17 23:11 08/24/17 03:02 (NS Flush) 2 ml UNSCH PRN IV FLUSH 08/22/17 23:15 (NS Flush) 2 ml BID IV FLUSH 08/23/17 09:00 (Tylenol) 650 mg Q4H PRN PO 08/22/17 23:15 (Narcan Inj) 0.4 mg UNSCH PRN IV PUSH 08/22/17 23:15 (Natasha-Colace) 1 tab BID PO 08/23/17 09:00 (Milk Of Magnesia Liq) 30 ml Q12H PRN PO 08/22/17 23:15 (Senokot) 17.2 mg Q12H PRN PO 08/22/17 23:15 (Dulcolax Supp) 10 mg DAILY PRN RECTAL 08/22/17 23:15 (Lactulose Liq) 30 ml DAILY PRN PO 08/22/17 23:15 (Cosopt 2-0.5% Opth Soln) 1 drop BID EACH EYE 08/23/17 09:00 08/24/17 07:57 (Morphine Inj) 2 mg Q4H PRN IV PUSH 08/22/17 23:45 08/23/17 18:45 Piperacillin Sod/ Tazobactam Sod 50 ml @ 100 mls/hr Q8H IV 08/23/17 15:00 08/24/17 06:15 (Zofran Inj) 4 mg Q4H PRN IV PUSH 08/23/17 14:30 08/23/17 18:46 (Catapres) 0.1 mg Q8HR PRN PO 08/23/17 18:30 Lactated Ringer's 1,000 ml @ 30 mls/hr Q24H PRN IV 08/24/17 00:45 08/27/17 00:44 Sodium Chloride 500 ml @ 30 mls/hr [id number] PRN IV 08/24/17 00:45 08/27/17 00:44 Objective Vital Signs Date Time Temp Pulse Resp B/P (MAP) Pulse Ox O2 Delivery O2 Flow Rate FiO2 08/24/17 08:00 97.1 72 17 155/70 (98) 97 08/24/17 04:00 97.7 66 20 160/65 (96) 96 08/24/17 00:09 97.3 68 20 164/60 (94) 92 08/23/17 16:00 96.5 63 17 171/74 (106) 97 08/23/17 12:00 97.3 70 17 179/74 (109) 95 I/O 08/23/17 08/23/17 08/23/17 08/24/17 08/24/17 08/24/17 07:00 15:00 23:00 07:00 15:00 23:00 Intake Total 400 ml 500 ml 1050 ml Balance 400 ml 500 ml 1050 ml Intake Oral 500 ml IV Total 400 ml 1050 ml # Voids 2 3 # Bowel Movements 1 Gen: NAD CV: RRR Lungs: CTA Abd: soft, tender RLQ, palpable hernia RLQ, RLQ ostomy, +BS Ext: No edema or calf tenderness Result Diagram: 08/23/1743 08/23/17 0643 Assessment and Plan Problem List: (1) Abdominal pain, right lower quadrant ICD Codes: R10.31 - Right lower quadrant pain Status: Acute Plan: Patient has Gallbladder incarcerated in peristomal hernia. To OR today for cholecystectomy and possible repair of hernia. (2) Elevated blood-pressure reading without diagnosis of hypertension ICD Codes: R03.0 - Elevated blood-pressure reading, without diagnosis of hypertension Status: Acute Plan: Provide Clonidine prn elevated BP Evan Mccurdy MD Aug 24, 2017 09:10
[2017-08-24] MEDS ORDERED: DO NOT ADM ANY ANTICOAGULANT DRUGS PRN (11:48)
--- NOTE | 2017-08-24 11:48 | EKG ---
Date Performed: 08/24/2017 Time Performed: 07:59:01 PTAGE: 82 years EKG: Sinus rhythm NORMAL ECG Compared to prior tracing no significant change PREVIOUS TRACING : 11/28/2013 08.27 DOCTOR: Jak Mancini Interpretating Date/Time 08/24/2017 11:48:08
[2017-08-24] MEDS ORDERED: ACETAMINOPHEN 1000 MG/100 ML 100 ML IV ONE (11:56)
[2017-08-24] MEDS ORDERED: HYDROmorphone HCL PF 2 MG/ML VIAL ONE (11:56)
[2017-08-24] MEDS ORDERED: *morphine SULFATE 8 MG/ML PERIprocedure ONLY ONE (12:16)
--- NOTE | 2017-08-24 12:23 | HHI.PR ---
cc: Mykel Ferrer MD Immediate Post Op Note Procedure Date: Aug 24, 2017 Pre Op Diagnosis: (1) Right upper quadrant pain (2) Parastomal hernia of ileal conduit (3) Gangrene of gallbladder (4) Gallbladder anomaly (5) gallbladder incarceration (6) incarcerated parastomal hernia (7) Abdominal pain Post Op Diagnosis: (1) gallbladder incarceration (2) incarcerated parastomal hernia (3) Gallbladder anomaly (4) Parastomal hernia of ileal conduit (5) Right upper quadrant pain (6) Gangrene of gallbladder Surgeon: Mykel Ferrer Cleaning Specialist(s): Sh[facility] OR Procedure: Reduction of incarcerated gallbladder in parastomal hernia with gallbladder resection Repair of parastomal hernia with bio a mesh Findings: Gangrenous gallbladder and parastomal hernia which was incarcerated Parastomal hernia Specimen(s) removed: Gallbladder and hernia sac Estimated blood loss: 50 cc Anesthesia: General Drains: None IVF Patient to: PACU Patient Condition: Good Implant/Devices: SEE IMPLANT LOG (if applicable) Date/Time of Procedure: SEE SURGICAL CARE RECORD Mykel Ferrer MD Aug 24, 2017 12:23
--- NOTE | 2017-08-24 13:17 | MP ---
cc: VEL ESTRADA M.D., DAVID L. MD BIANCHI, JOSEPH D. M.D. DATE OF SURGERY 08/24/2017 PREOPERATIVE DIAGNOSIS Parastomal hernia at previous ileostomy site with incarcerated gangrenous gallbladder. POSTOPERATIVE DIAGNOSIS incarcerated gallbladder in parastomal hernia with necrosis of the gallbladder. PROCEDURE Cholecystectomy. Repair of incisional hernia with mesh. Revision ileostomy ANESTHESIA General. SURGEON Dr. Ferrer INDICATION This is a pleasant 82-year-old female who is had an ileostomy for sometime. She developed some right upper quadrant pain and bulge into her parastomal hernia. It was found this was actually her gallbladder that was incarcerated in the hernia. Plans were made for above. PROCEDURE The patient and taken to the operating room, placed in the supine position. After anesthesia we take her ostomy appliance off. The gallbladder can be palpated just under the skin; it is very firm, of course cannot be reduced. We then place a portion of a Ray-Sarina gauze in the ileostomy and then using a running baseball stitch just close the ileostomy to prevent spillage. We prep and drape. We make an incision just lateral to the ileostomy and slightly above the ileostomy after prepping and draping with Betadine. We did anesthetize with Marcaine solution. Once we get into the deep subcutaneous tissue we are able to dissect in the hernia sac. The hernia sac is entered. Ischemic the gallbladder can be seen, is fairly distended. The hernia defect is noted. There is small bowel up there that is not incarcerated; this is all reduced. The ileostomy can be seen. We have to make the incisional a little bit more lateral and medial again just above the ileostomy site. We were able to then enter the abdomen and dissect the gallbladder from the liver edge, identifying the cystic duct, cystic artery both of which were doubly ligated with hemoclips. The gallbladder was then teased off and passed off the field. We then irrigate. There is excellent hemostasis. We then remove the hernia sac using electrocautery device circumferentially. Once the hernia sac is then removed we then see the fascial layer where the defect measures probably 4 or 5 cm. This is reapproximated with #1 PDS in an interrupted fashion. With this accomplished, we then apply onlay mesh, a piece of BIO-A mesh which is U-shaped to go around proximally at the superior edge of the ileostomy and the inferior edge of the ileostomy. This is all secured to the fascial layer using a #1 PDS at the four corners and the sides to cover the repair of the parastomal hernia. After this is done we then irrigate. Hemostasis assured, we close the deep layer with 3-0 Vicryl and the skin near the ileostomy is closed with a 3-0 Vicryl and lateral to it we closed with the skin stapling device. The appliance is applied after we removed the Ray tecs that was placed in the has a ostomy The patient tolerated the procedure well. Mykel Ferrer MD JDB/SSB /12:47 PM /12:56 PM SYDNIE
[2017-08-24] MEDS: ONDANSETRON HCL 4 MG/2 ML VIAL IV PUSH PRN (13:22)
[2017-08-24] MEDS: ACETAMINOPHEN/HYDROcodone 325 MG/5 MG TAB PO PRN (14:07)
--- NOTE | 2017-08-24 14:56 | PD.WCN.NOT ---
Wound Consult Description: Consult for OSTOMY MANAGEMENT of ileostomy per Dr. Temple Communicated with: Patient Recommendation: Use adhesive remover when taking off wafer Cleanse peristomal skin with water only and pat dry Apply Cavilon skin prep to peristomal skin and allow to dry before placing new barrier Additional Information: Patient seen on [address] [place] [address] for ostomy assessment post operatively. Ostomy Type: Ileostomy Complete: Other (Cavilon skin prep given for next appliance change) Additional information Patient seen on [address] [place] [address] for ostomy assessment. Patient right side abdomen is noted with the same ileostomy that was visualized on the assessment yesterday . One piece appliance is intact with minimal sanguinous drainage noted in pouch that was not emptied by junior technical writer. Patient will be followed up on again tomorrow for help with appliance change if needed on 08/25/17. Cavilon available on bedside table if needed. Velia Dunlap [facility] Aug 24, 2017 14:56
[2017-08-24] MEDS: MORPHINE SULFATE 2 MG/ML INJ IV PUSH PRN (15:28)
[2017-08-24 16:00] VITALS: BP 161/67; PULSE 58; RESP 16; TEMP 95.6; O2SAT 96
[2017-08-24 20:00] VITALS: BP 150/66; PULSE 71; RESP 18; TEMP 97.2; O2SAT 95
[2017-08-25] VITALS (7 sets, daily range): BP systolic 143–165; BP diastolic 64–71; PULSE 57–66; RESP 15–18; TEMP 97–97.9; O2SAT 92–98
[2017-08-25] MEDS: ACETAMINOPHEN/HYDROcodone 325 MG/5 MG TAB PO PRN ×4 (00:24→18:16)
[2017-08-25] MEDS: PIPERACIL-TAZO 3.375 GM PREMIX 50 ML IV SCH (06:40)
[2017-08-25] MEDS: SODIUM CHLORIDE 0.9% FLUSH 10 ML FLUSH IV FLUSH SCH ×2 (09:00→21:00)
[2017-08-25] MEDS: DOCUSATE SODIUM 50 MG/SENNA 8.6 MG TAB PO SCH ×2 (09:00→21:00)
[2017-08-25] MEDS: DORZOLAMIDE/TIMOLOL OPTH SOLN 10 ML BTL EACH EYE SCH ×2 (09:38→21:55)
--- NOTE | 2017-08-25 12:17 | PD.WCN.NOT ---
Wound Consult Description: Consult for OSTOMY MANAGEMENT of ileostomy per Dr. Temple Communicated with: Patient Recommendation: Use adhesive remover when taking off wafer Cleanse peristomal skin with water only and pat dry Apply Cavilon skin prep to peristomal skin and allow to dry before placing new barrier Additional Information: Patient seen on [place] for ostomy assessment. 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 Patient has her own supplies.) Additional information Patient seen on [place] for ostomy assessment. Minimal sanguinous liquid noted in pouch. Patient states feeling better today. Appliance is intact and noted without leaks on right side abdomen. [facility]lap [facility] Aug 25, 2017 12:16
--- NOTE | 2017-08-25 12:38 | HHI.PR ---
Subjective Remarks POD #1 S/P cholecystectomy, repair peristomal hernia. Doing well. Pain controlled. Taking po well. Ostomy functioning. OOB to BR. No nausea or emesis Current Medications Medications (Trade) Dose Ordered Sig/Zoe Route Start Time Stop Time Status Last Admin Sodium Chloride 1,000 ml @ 75 mls/hr [id number] IV 08/22/17 23:11 08/24/17 20:40 (NS Flush) 2 ml UNSCH PRN IV FLUSH 08/22/17 23:15 (NS Flush) 2 ml BID IV FLUSH 08/23/17 09:00 (Tylenol) 650 mg Q4H PRN PO 08/22/17 23:15 (Narcan Inj) 0.4 mg UNSCH PRN IV PUSH 08/22/17 23:15 (Natasha-Colace) 1 tab BID PO 08/23/17 09:00 (Milk Of Magnesia Liq) 30 ml Q12H PRN PO 08/22/17 23:15 (Senokot) 17.2 mg Q12H PRN PO 08/22/17 23:15 (Dulcolax Supp) 10 mg DAILY PRN RECTAL 08/22/17 23:15 (Lactulose Liq) 30 ml DAILY PRN PO 08/22/17 23:15 (Cosopt 2-0.5% Opth Soln) 1 drop BID EACH EYE 08/23/17 09:00 08/25/17 09:38 (Morphine Inj) 2 mg Q4H PRN IV PUSH 08/22/17 23:45 08/24/17 15:28 Piperacillin Sod/ Tazobactam Sod 50 ml @ 100 mls/hr Q8H IV 08/23/17 15:00 08/25/17 06:40 (Zofran Inj) 4 mg Q4H PRN IV PUSH 08/23/17 14:30 08/24/17 13:22 (Catapres) 0.1 mg Q8HR PRN PO 08/23/17 18:30 Lactated Ringer's 1,000 ml @ 30 mls/hr Q24H PRN IV 08/24/17 00:45 08/27/17 00:44 Sodium Chloride 500 ml @ 30 mls/hr [id number] PRN IV 08/24/17 00:45 08/27/17 00:44 ([place] 5-325 Mg) 1 tab Q4H PRN PO 08/24/17 12:30 08/25/17 09:45 Objective Vital Signs Date Time Temp Pulse Resp B/P (MAP) Pulse Ox O2 Delivery O2 Flow Rate FiO2 08/25/17 12:00 97.9 66 17 145/65 (91) 96 08/25/17 10:52 98 08/25/17 08:00 97.3 57 15 143/66 (91) 98 08/25/17 04:06 96 08/25/17 00:00 97.0 64 18 143/64 (90) 92 08/24/17 20:00 97.2 71 18 150/66 (94) 95 08/24/17 16:00 95.6 58 16 161/67 (98) 96 08/24/17 12:45 97.5 59 21 170/72 (104) 100 Room Air I/O 08/24/17 08/24/17 08/24/17 08/25/17 08/25/17 08/25/17 07:00 15:00 23:00 07:00 15:00 23:00 Intake Total 1050 ml 550 ml 1050 ml 572 ml Output Total 120 ml 505 ml Balance 1050 ml 430 ml 1050 ml 67 ml Intake Oral 0 ml 0 ml IV Total 1050 ml 1050 ml 572 ml Other 550 ml Output Urine Total 50 ml 505 ml Stool Total 0 ml Estimated Blood Loss 50 ml Other 20 ml Bladder Scan Volume Amount 108 ml # Voids 1 3 # Bowel Movements 0 CV: RRR Lungs: CTA Abd: RLQ ostomy, mild distention, soft, mild incisional discomfort with palpation Ext; No edema or calf tenderness Result Diagram: 08/23/1743 08/23/17 0643 Assessment and Plan Problem List: (1) Abdominal pain, right lower quadrant ICD Codes: R10.31 - Right lower quadrant pain Status: Acute Plan: POD # 1 Doing well with mild discomfort. Tolerating diet. Increase activity. Incision care per surgery (2) Elevated blood-pressure reading without diagnosis of hypertension ICD Codes: R03.0 - Elevated blood-pressure reading, without diagnosis of hypertension Status: Acute Plan: BP improving. Provide Clonidine prn elevated BP Discussed Condition With Dr Ferrer. Anticipate home Fri or Sat Evan Mccurdy MD Aug 25, 2017 12:38
--- NOTE | 2017-08-25 12:57 | HHI.PR ---
cc: Mykel Ferrer MD Subjective Subjective Notes DAILY PROGRESS NOTE FOR SURGICAL ATTENDING, DR. MYKEL FERRER Resting in bed Pain controlled with PO pain meds Pain really only when getting OOB Wants to walk some this afternoon Low appetite Objective Vitals/I&O Vital Signs Date Time Temp Pulse Resp B/P (MAP) Pulse Ox O2 Delivery O2 Flow Rate FiO2 08/25/17 12:00 97.9 66 17 145/65 (91) 96 08/24/17 12:45 Room Air 08/24/17 12:15 2 Radiology Last 48 hours Impressions Abdomen/Pelvis CT 08/22/17 4711 Signed Impressions: Service Date/Time: Tuesday, August 22, 2017 20:38 - CONCLUSION: 1. 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 2. Status post colectomy. 3. Cystic areas in the left lobe of the liver. 4. Status post vertebroplasty. 5. Status post right hip arthroplasty. Jack Christopher MD Cardiovascular: Regular Lungs: Clear Abdomen: Other (ileostomy with pink stoma--- just thin drainage in bag; no gas ; zoey lateral to stoma c/d/i ) Extremities: No edema Wound Wound : Wound Location: Abdomen Dressing: Dry A/P Assessment and Plan 82 year old female POD1 repair of large parastomal hernia; cholecystectomy -Regular diet -DC IVF -Transition to PO antibiotics -Pain control -OOB and mobilize -Okay for no IV access Attending Statement NOTE FOR SURGICAL ATTENDING, DR. MYKEL FERRER Patient doing well Discussed with Dr. Mccurdy Discussed with Dr. Allan Pride functional Anticipated discharge Wednesday or Wednesday I agree with above assessment and plan. The exam, history, and the medical decision-making described in the above note were completed with the assistance of the mid-level provider. I reviewed and agree with the findings presented. I attest that I had a [id number] encounter with the patient on the same day, and personally performed and documented my assessment and findings in the medical record. The following services were provided during this hospital visit: Chart data review, vital sign assessments/reviewing monitor data Review of consultations notes if present. Medication orders/review and/or management Ordering and/or reviewing lab tests Ordering and/or interpreting/reviewing x-rays and/or diagnostic studies Care of the patient and discussion of the patient with the care team Documentation time To help prompt me to consider important information that might be impacting today's encounter and assessment, information from prior notes written by myself or my colleagues may have been "brought forward/copy and pasted" into today's note. Isabella Cano Aug 25, 2017 12:57 Mykel Ferrer MD Aug 25, 2017 15:56
[2017-08-25] MEDS: AMOXICILLIN/CLAVULANATE K 875 MG TAB PO SCH (21:55)
[2017-08-26] VITALS (7 sets, daily range): BP systolic 138–196; BP diastolic 72–83; PULSE 62–82; RESP 16–18; TEMP 96.9–97.9; O2SAT 94–97
[2017-08-26] MEDS: DORZOLAMIDE/TIMOLOL OPTH SOLN 10 ML BTL EACH EYE SCH ×2 (08:58→21:08)
[2017-08-26] MEDS: ACETAMINOPHEN/HYDROcodone 325 MG/5 MG TAB PO PRN ×3 (08:59→17:44)
[2017-08-26] MEDS: DOCUSATE SODIUM 50 MG/SENNA 8.6 MG TAB PO SCH ×2 (08:59→21:07)
[2017-08-26] MEDS: SODIUM CHLORIDE 0.9% FLUSH 10 ML FLUSH IV FLUSH SCH ×2 (08:59→21:00)
[2017-08-26] MEDS: AMOXICILLIN/CLAVULANATE K 875 MG TAB PO SCH ×2 (09:00→21:07)
--- NOTE | 2017-08-26 10:39 | PD.WCN.NOT ---
Wound Consult Description: Consult for OSTOMY MANAGEMENT of ileostomy per Dr. Temple Communicated with: Patient RN Recommendation: Use adhesive remover when taking off wafer (barrier) Cleanse peristomal skin with water only and pat dry Apply Cavilon skin prep to peristomal skin and allow to dry before placing new barrier Additional Information: Patient seen on for follow up on patient Ostomy Type: Ileostomy (not a new ileostomy) Complete: Other (Cavilon skin prep in patient room. Patient has her own supplies.) Additional information Vocera policy checker if needed [facility] Aug 26, 2017 10:39
--- NOTE | 2017-08-26 11:17 | HHI.FF ---
Face to Face Verification Diagnosis: (1) Gangrene of gallbladder (2) Parastomal hernia of ileal conduit Home Health Nursing Order: Wound care and dressing changes Instructions: Continued ileostomy care I have seen patient Mike Goldberg on 08/26/17. My clinical findings support the need for the requested home health care services because: Limited ability to care for self High risk of falls I certify that my clinical findings support that this patient is homebound because: Post-op weakness Isabella CanoP Aug 26, 2017 11:17
--- NOTE | 2017-08-26 12:37 | HHI.PR ---
Subjective Remarks Out of bed in chair. By mouth intake improving. Ostomy functioning well. Has mild to moderate incisional pain which is under control. Blood pressure was high again. Patient is anxious about hospitalization and her decreased independence as a result of the surgery. She also anxious about being able to care for herself at home. She is inquiring about hiring some private caregivers to assist her at home for the first few days. Current Medications Medications (Trade) Dose Ordered Sig/Zoe Route Start Time Stop Time Status Last Admin (NS Flush) 2 ml UNSCH PRN IV FLUSH 08/22/17 23:15 (NS Flush) 2 ml BID IV FLUSH 08/23/17 09:00 08/26/17 08:59 (Tylenol) 650 mg Q4H PRN PO 08/22/17 23:15 (Narcan Inj) 0.4 mg UNSCH PRN IV PUSH 08/22/17 23:15 (Natasha-Colace) 1 tab BID PO 08/23/17 09:00 08/26/17 08:59 (Milk Of Magnesia Liq) 30 ml Q12H PRN PO 08/22/17 23:15 (Senokot) 17.2 mg Q12H PRN PO 08/22/17 23:15 (Dulcolax Supp) 10 mg DAILY PRN RECTAL 08/22/17 23:15 (Lactulose Liq) 30 ml DAILY PRN PO 08/22/17 23:15 (Cosopt 2-0.5% Opth Soln) 1 drop BID EACH EYE 08/23/17 09:00 08/26/17 08:58 (Morphine Inj) 2 mg Q4H PRN IV PUSH 08/22/17 23:45 08/24/17 15:28 (Zofran Inj) 4 mg Q4H PRN IV PUSH 08/23/17 14:30 08/24/17 13:22 (Catapres) 0.1 mg Q8HR PRN PO 08/23/17 18:30 ([place] 5-325 Mg) 1 tab Q4H PRN PO 08/24/17 12:30 08/26/17 08:59 (Augmentin) 875 mg Q12HR PO 08/25/17 21:00 08/26/17 09:00 Objective Vital Signs Date Time Temp Pulse Resp B/P (MAP) Pulse Ox O2 Delivery O2 Flow Rate FiO2 08/26/17 12:00 97.3 75 16 142/72 (95) 96 08/26/17 08:00 97.4 72 16 178/83 (114) 94 08/26/17 00:00 96.9 62 17 196/74 (114) 97 08/25/17 20:00 97.1 62 17 165/71 (102) 95 165/71 (102) 08/25/17 17:59 96 21 I/O 08/25/17 08/25/17 08/25/17 08/26/17 08/26/17 08/26/17 07:00 15:00 23:00 07:00 15:00 23:00 Intake Total 572 ml 290 ml 240 ml Output Total 505 ml Balance 67 ml 290 ml 240 ml Intake Oral 240 ml 240 ml IV Total 572 ml 50 ml Output Urine Total 505 ml Stool Total 0 ml Bladder Scan Volume Amount 108 ml # Voids 3 2 # Bowel Movements 0 General: Well-nourished, well-developed elderly white female sitting in a chair in no acute distress Cardiovascular examination reveals regular rate and rhythm Lungs are clear to auscultation Lower extremities reveal no appreciable edema Result Diagram: 08/23/1743 08/23/1743 Assessment and Plan Problem List: (1) Abdominal pain, right lower quadrant ICD Codes: R10.31 - Right lower quadrant pain Status: Acute Plan: POD # 2 status post cholecystectomy and repair of peristomal hernia. Patient is doing very well. Increase activity as tolerated. Encourage oral intake. (2) Elevated blood-pressure reading without diagnosis of hypertension ICD Codes: R03.0 - Elevated blood-pressure reading, without diagnosis of hypertension Status: Acute Plan: lood pressure was higher overnight. I believe that it's related to her emotional stress, however, clonidine has not been given as ordered for systolic blood pressure greater than 160. Start lisinopril 10 mg 1 tablet daily. Clonidine when necessary elevated blood pressure readings. Discharge Planning I discussed with the patient that it would be a good idea for her to have additional help at home for the first few days. I will asked case management to provide her with a list of companies to provide private duty caregivers in the home. Home health orders have already been written by general surgery. Evan Mccurdy MD Aug 26, 2017 12:37
--- NOTE | 2017-08-26 15:32 | HHI.PR ---
cc: Mykel Cruz MD Subjective Subjective Notes DAILY PROGRESS NOTE FOR SURGICAL ATTENDING, DR. MYKEL CRUZ Frustrated with being in the hospital but overall feels that she is doing well post operatively Asking for [facility]---has used [facility] in the past with her and very happy with their care Objective Vitals/I&O Vital Signs Date Time Temp Pulse Resp B/P (MAP) Pulse Ox O2 Delivery O2 Flow Rate FiO2 08/26/17 12:00 97.3 75 16 142/72 (95) 96 08/25/17 17:59 21 08/24/17 12:45 Room Air 08/24/17 12:15 2 Labs Laboratory Tests Test 08/22/17 19:14 08/22/17 21:10 08/23/17 06:43 Lipase 399 U/L Urine Color YELLOW Urine Turbidity CLEAR Urine pH 5.0 Urine Specific [place] 1.035 Urine Protein TRACE mg/dL Urine Glucose (UA) NEG mg/dL Urine Ketones NEG mg/dL Urine Occult Blood SMALL Urine Nitrite NEG Urine Bilirubin NEG Urine Urobilinogen LESS THAN 2.0 MG/DL Urine Leukocyte Esterase NEG Urine RBC 1 /hpf Urine WBC 1 /hpf Urine Squamous Epithelial Cells <1 /hpf Urine Hyaline Casts 1 /lpf Urine Mucus FEW /lpf Microscopic Urinalysis Comment CULT NOT INDICATED White Blood Count 8.7 TH/MM3 Red Blood Count 4.04 MIL/MM3 Hemoglobin 12.9 GM/DL Hematocrit 37.2 % Mean Corpuscular Volume 92.1 FL Mean Corpuscular Hemoglobin 32.0 PG Mean Corpuscular Hemoglobin Concent 34.7 % Red Cell Distribution Width 13.9 % Platelet Count 189 TH/MM3 Mean Platelet Volume 8.7 FL Neutrophils (%) (Auto) 80.3 % Lymphocytes (%) (Auto) 9.2 % Monocytes (%) (Auto) 10.2 % Eosinophils (%) (Auto) 0.2 % Basophils (%) (Auto) 0.1 % Neutrophils # (Auto) 7.0 TH/MM3 Lymphocytes # (Auto) 0.8 TH/MM3 Monocytes # (Auto) 0.9 TH/MM3 Eosinophils # (Auto) 0.0 TH/MM3 Basophils # (Auto) 0.0 TH/MM3 CBC Comment DIFF FINAL Differential Comment Blood Urea Nitrogen 17 MG/DL Creatinine 0.93 MG/DL Random Glucose 105 MG/DL Total Protein 6.3 GM/DL Albumin 2.8 GM/DL Calcium Level 7.7 MG/DL Alkaline Phosphatase 99 U/L Aspartate Amino Transf (AST/SGOT) 68 U/L Alanine Aminotransferase (ALT/SGPT) 51 U/L Total Bilirubin 0.6 MG/DL Sodium Level 139 MEQ/L Potassium Level 3.5 MEQ/L Chloride Level 107 MEQ/L Carbon Dioxide Level 26.5 MEQ/L Anion Gap 6 MEQ/L Estimat Glomerular Filtration Rate 58 ML/MIN Radiology Last 48 hours Impressions Abdomen/Pelvis CT 08/22/171910 Signed Impressions: Service Date/Time: Tuesday, August 22, 2017 20:38 - CONCLUSION: 1. 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 2. Status post colectomy. 3. Cystic areas in the left lobe of the liver. 4. Status post vertebroplasty. 5. Status post right hip arthroplasty. 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 MYKEL CRUZ I agree with above assessment and plan. The exam, history, and the medical decision-making described in the above note were completed with the assistance of the mid-level provider. I reviewed and agree with the findings presented. I attest that I had a [id number] encounter with the patient on the same day, and personally performed and documented my assessment and findings in the medical record. The following services were provided during this hospital visit: Chart data review, vital sign assessments/reviewing monitor data Review of consultations notes if present. Medication orders/review and/or management Ordering and/or reviewing lab tests Ordering and/or interpreting/reviewing x-rays and/or diagnostic studies Care of the patient and discussion of the patient with the care team Documentation time To help prompt me to consider important information that might be impacting today's encounter and assessment, information from prior notes written by myself or my colleagues may have been "brought forward/copy and pasted" into today's note. Isabella Cano Aug 26, 2017 15:32 Mykel Cruz MD Aug 26, 2017 20:15
[2017-08-26] MEDS: LISINOPRIL 10 MG TAB PO SCH (16:38)
[2017-08-27] VITALS: BP 176/59; PULSE 64; RESP 16; TEMP 97.2; O2SAT 96
[2017-08-27 08:00] VITALS: BP 167/73; PULSE 75; RESP 18; TEMP 96.8; O2SAT 96
[2017-08-27] MEDS: AMOXICILLIN/CLAVULANATE K 875 MG TAB PO SCH (08:22)
[2017-08-27] MEDS: LISINOPRIL 10 MG TAB PO SCH (08:23)
[2017-08-27] MEDS: ACETAMINOPHEN/HYDROcodone 325 MG/5 MG TAB PO PRN ×2 (08:23→14:03)
[2017-08-27] MEDS: DOCUSATE SODIUM 50 MG/SENNA 8.6 MG TAB PO SCH ×2 (08:23→21:00)
[2017-08-27] MEDS: SODIUM CHLORIDE 0.9% FLUSH 10 ML FLUSH IV FLUSH SCH ×2 (08:29→21:00)
[2017-08-27] MEDS: DORZOLAMIDE/TIMOLOL OPTH SOLN 10 ML BTL EACH EYE SCH ×2 (08:29→22:15)
--- NOTE | 2017-08-27 08:55 | HHI.PR ---
Subjective Remarks The patient is very anxious this morning. She had an episode of emesis in the middle of the night. She states that she is in a lot more pain, however, she did not ask for any pain medication overnight. Blood pressure is elevated. She is worried about going home. Her niece and nephew will be with her for 48 hours and then a cousin will be staying with her afterward. Her appetite has remained fair and this concerns her as well. She is drinking Ensure one bottle twice a day. Ostomy is functioning well. Large amount of stool passing through ostomy. No further nausea. She remains afebrile. She received her first dose of lisinopril yesterday. Denies chest pain, shortness of breath, headaches or palpitations. Current Medications Medications (Trade) Dose Ordered Sig/Zoe Route Start Time Stop Time Status Last Admin (NS Flush) 2 ml UNSCH PRN IV FLUSH 08/22/17 23:15 (NS Flush) 2 ml BID IV FLUSH 08/23/17 09:00 08/26/17 08:59 (Tylenol) 650 mg Q4H PRN PO 08/22/17 23:15 (Narcan Inj) 0.4 mg UNSCH PRN IV PUSH 08/22/17 23:15 (Natasha-Colace) 1 tab BID PO 08/23/17 09:00 08/27/17 08:23 (Milk Of Magnesia Liq) 30 ml Q12H PRN PO 08/22/17 23:15 (Senokot) 17.2 mg Q12H PRN PO 08/22/17 23:15 (Dulcolax Supp) 10 mg DAILY PRN RECTAL 08/22/17 23:15 (Lactulose Liq) 30 ml DAILY PRN PO 08/22/17 23:15 (Cosopt 2-0.5% Opth Soln) 1 drop BID EACH EYE 08/23/17 09:00 08/27/17 08:29 (Morphine Inj) 2 mg Q4H PRN IV PUSH 08/22/17 23:45 08/24/17 15:28 (Zofran Inj) 4 mg Q4H PRN IV PUSH 08/23/17 14:30 08/24/17 13:22 (Catapres) 0.1 mg Q8HR PRN PO 08/23/17 18:30 ([place] 5-325 Mg) 1 tab Q4H PRN PO 08/24/17 12:30 08/27/17 08:23 (Augmentin) 875 mg Q12HR PO 08/25/17 21:00 08/27/17 08:22 (Prinivil) 10 mg DAILY PO 08/26/17 12:45 08/27/17 08:23 Objective Vital Signs Date Time Temp Pulse Resp B/P (MAP) Pulse Ox O2 Delivery O2 Flow Rate FiO2 08/27/17 08:00 96.8 75 18 167/73 (104) 96 Manual Cuff/Auscultation 08/27/17 00:00 97.2 64 16 176/59 (98) 96 08/26/17 20:00 97.9 82 16 155/80 (105) 94 08/26/17 17:30 97 21 08/26/17 16:00 97.8 79 18 138/76 (96) 97 08/26/17 12:00 97.3 75 16 142/72 (95) 96 I/O 08/26/17 08/26/17 08/26/17 08/27/17 08/27/17 08/27/17 07:00 15:00 23:00 07:00 15:00 23:00 Intake Total 240 ml 240 ml 240 ml Balance 240 ml 240 ml 240 ml Intake Oral 240 ml 240 ml 240 ml # Voids 2 3 # Bowel Movements 0 General: Thin but well-nourished elderly white female sitting up in bed appearing anxious but in no physical distress Cardiovascular: Regular rate and rhythm without murmurs Lungs: Clear to auscultation Abdomen: Distended, soft, nontender, ostomy in right lower quadrant with large amount of liquid stool in bag, bowel sounds present, no masses Extremities: No edema. No calf tenderness. Result Diagram: 08/23/1743 08/23/1743 Assessment and Plan Problem List: (1) Gangrenous cholecystitis ICD Codes: K81.0 - Acute cholecystitis Status: Acute Plan: Postop day #3 status post cholecystectomy. She had nausea with one episode of emesis overnight. Patient denies any nausea this morning. She has been receiving Augmentin which could be contributing to nausea and decreased appetite. We'll discontinue antibiotics today. She did receive the morning dosage. I encouraged oral intake. (2) Peristomal hernia ICD Codes: K46.9 - Unspecified abdominal hernia without obstruction or gangrene Status: Chronic Plan: Status post repair of the peristomal hernia. Ileostomy functioning well. (3) Elevated blood-pressure reading without diagnosis of hypertension ICD Codes: R03.0 - Elevated blood-pressure reading, without diagnosis of hypertension Status: Acute Plan: Blood pressure remains elevated. I believe this is related to her situational anxiety. Continue with lisinopril but will add alprazolam which she has taken in the past and has been very effective when she is at situational anxiety. (4) Anxiety as acute reaction to exceptional stress ICD Codes: F41.1 - Generalized anxiety disorder; F43.0 - Acute stress reaction Status: Acute Plan: Patient is very anxious about her current situation. She normally is not ill and she has no local family. Her niece, nephew and cousin all live out of town. As result, she is very anxious about her need for assistance at this time. She will have adequate support at home with her family but she does not like to rely on others for assistance. She has had similar stress reactions in the past and they've responded to alprazolam. I will order 0.125 mg 3 times a day. I believe if we can calm her anxiety, her appetite will improve and her overall feeling of well-being will improve Discharge Planning Probable discharge home tomorrow Evan Mccurdy MD Aug 27, 2017 08:55
[2017-08-27] MEDS: ALPRAZolam 0.25 MG TAB PO SCH ×3 (09:45→17:11)
--- NOTE | 2017-08-27 11:52 | PD.WCN.NOT ---
Wound Consult Description: Consult for OSTOMY MANAGEMENT of ileostomy per Dr. Temple Communicated with: Patient Recommendation: Use adhesive remover when taking off wafer (barrier) Cleanse peristomal skin with water only and pat dry Apply Cavilon skin prep to peristomal skin and allow to dry before placing new barrier Additional Information: Patient seen on [address] [place] [address] for ostomy assessment. 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 Patient has her own supplies.) Educated patient on: Emptying pouch when /3-/2 full Additional information Patient seen on [address] [place] [address] for ileostomy assessment. Upon entering room patient was sitting up in chair with a friend at her bedside. Patient states that she emptied her pouch an hour ago. Patient lifted her gown and showed us her pouch that was more than half full of liquid brown effluent. Patient states "Wow, and I just emptied it, I cannot believe how fast it filled up". Patient states that she will go empty it into the bathroom when poem writer leaves. Stoma is measuring ~ 1 1/4" with a 1 3/4" appliance intact. Stoma is red, round, moist, slightly edematous, lumen noted at 6 o'clock and functioning with liquid brown effluent noted in pouch on right side abdomen. Patient states that she does have her own appliances and thanks poem writer for the Cavilon skin prep that she will use today if the appliance needs to be changed with the dressing covering her zoey on her right side abdomen. Patient to ask for transfer pumper if any further appliances or help is needed. Velia Dunlap [facility] Aug 27, 2017 11:52
[2017-08-27 12:00] VITALS: BP 145/66; PULSE 82; RESP 17; TEMP 97.4; O2SAT 98
[2017-08-27 13:34] LABS: BICARBONATE 24.3 MEQ/L (21.0-32.0); POTASSIUM 3.3 MEQ/L (3.5-5.1)
[2017-08-27] MEDS ORDERED: HYDR-3516 PO (15:49)
--- NOTE | 2017-08-27 15:52 | HHI.PR ---
cc: Mykel Ferrer MD Subjective Subjective Notes Resting in bed talking with a friend on the telephone Has had a better afternoon than she did morning today Still with low appetite but she has been doing some Ensure shakes to supplement her diet Objective Vitals/I&O Vital Signs Date Time Temp Pulse Resp B/P (MAP) Pulse Ox O2 Delivery O2 Flow Rate FiO2 08/27/17 12:00 97.4 82 17 145/66 (92) 98 08/26/17 17:30 21 08/24/17 12:45 Room Air 08/24/17 12:15 2 Labs Laboratory Tests Test 08/27/17 12:25 Blood Urea Nitrogen 15 Creatinine 1.20 Random Glucose 119 Calcium Level 8.5 Sodium Level 129 Potassium Level 3.3 Chloride Level 96 Carbon Dioxide Level 24.3 Anion Gap 9 Estimat Glomerular Filtration Rate 43 Radiology Last 48 hours Impressions Abdomen/Pelvis CT 08/22/17 191 Signed Impressions: Service Date/Time: Tuesday, August 22, 2017 20:38 - CONCLUSION: 1. 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 2. Status post colectomy. 3. Cystic areas in the left lobe of the liver. 4. Status post vertebroplasty. 5. Status post right hip arthroplasty. 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
[2017-08-27 16:00] VITALS: BP 150/64; PULSE 76; RESP 18; TEMP 96; O2SAT 99
[2017-08-27 20:00] VITALS: BP 114/65; PULSE 77; RESP 18; TEMP 97.5; O2SAT 98
[2017-08-28] VITALS: BP 135/60; PULSE 75; RESP 18; TEMP 97; O2SAT 97
[2017-08-28] MEDS: ACETAMINOPHEN/HYDROcodone 325 MG/5 MG TAB PO PRN (07:23)
[2017-08-28 08:00] VITALS: BP 174/71; PULSE 66; RESP 17; TEMP 96.6; O2SAT 98
[2017-08-28] MEDS: DOCUSATE SODIUM 50 MG/SENNA 8.6 MG TAB PO SCH (09:00)
[2017-08-28] MEDS: SODIUM CHLORIDE 0.9% FLUSH 10 ML FLUSH IV FLUSH SCH (09:00)
[2017-08-28] MEDS: DORZOLAMIDE/TIMOLOL OPTH SOLN 10 ML BTL EACH EYE SCH (09:00)
--- NOTE | 2017-08-28 09:48 | HHI.PR ---
Subjective Remarks She is doing much better this morning. She has had no further nausea. Appetite is improving. Ostomy output is good. Urine output is excellent. She has been ambulating within the room. She is currently out of bed in a chair. Anxiety is much better with the alprazolam. Laboratory studies done yesterday revealed sodium level of 129 and potassium of 3.4. Patient states her pain is under adequate control with when necessary oral analgesics. She does want to go home today. She will have family staying with her for the next several days. Blood pressure remains variable but under better control since she's received the alprazolam. Current Medications Medications (Trade) Dose Ordered Sig/Zoe Route Start Time Stop Time Status Last Admin (NS Flush) 2 ml UNSCH PRN IV FLUSH 08/22/17 23:15 (NS Flush) 2 ml BID IV FLUSH 08/23/17 09:00 08/26/17 08:59 (Tylenol) 650 mg Q4H PRN PO 08/22/17 23:15 (Narcan Inj) 0.4 mg UNSCH PRN IV PUSH 08/22/17 23:15 (Natasha-Colace) 1 tab BID PO 08/23/17 09:00 08/27/17 08:23 (Milk Of Magnesia Liq) 30 ml Q12H PRN PO 08/22/17 23:15 (Senokot) 17.2 mg Q12H PRN PO 08/22/17 23:15 (Dulcolax Supp) 10 mg DAILY PRN RECTAL 08/22/17 23:15 (Lactulose Liq) 30 ml DAILY PRN PO 08/22/17 23:15 (Cosopt 2-0.5% Opth Soln) 1 drop BID EACH EYE 08/23/17 09:00 08/27/17 22:15 (Morphine Inj) 2 mg Q4H PRN IV PUSH 08/22/17 23:45 08/24/17 15:28 (Zofran Inj) 4 mg Q4H PRN IV PUSH 08/23/17 14:30 08/24/17 13:22 (Catapres) 0.1 mg Q8HR PRN PO 08/23/17 18:30 ([place] 5-325 Mg) 1 tab Q4H PRN PO 08/24/17 12:30 08/28/17 07:23 (Prinivil) 10 mg DAILY PO 08/26/17 12:45 08/27/17 08:23 (Xanax) 0.125 mg TID PO 08/27/17 09:00 08/27/17 17:11 (KCl) 20 meq ONCE ONCE PO 08/28/17 09:30 08/28/17 09:31 UNV Objective Vital Signs Date Time Temp Pulse Resp B/P (MAP) Pulse Ox O2 Delivery O2 Flow Rate FiO2 08/28/17 08:00 96.6 66 17 174/71 (105) 98 08/28/17 00:00 97.0 75 18 135/60 (85) 97 08/27/17 20:00 97.5 77 18 114/65 (81) 98 08/27/17 16:00 96.0 76 18 150/64 (92) 99 08/27/17 12:00 97.4 82 17 145/66 (92) 98 I/O 08/27/17 08/27/17 08/27/17 08/28/17 08/28/17 08/28/17 07:00 15:00 23:00 07:00 15:00 23:00 Intake Total 240 ml 855 ml 240 ml Balance 240 ml 855 ml 240 ml Intake Oral 240 ml 855 ml 240 ml # Voids 1 3 # Bowel Movements 4 In general the patient is a well-nourished well-developed elderly white female sitting up in a chair in no acute distress Cardiovascular examination revealed regular rate and rhythm without murmurs Lungs clear to auscultation Abdomen mildly distended, soft, nontender, ostomy present with stool in the bag. Lower extremities reveal trace edema in the distal lower legs and ankles. Result Diagram: 08/27/17 1225 Assessment and Plan Problem List: (1) Gangrenous cholecystitis ICD Codes: K81.0 - Acute cholecystitis Status: Acute Plan: Postop day #4. The patient is doing much better today. She is eager to go home. She is taking by mouth well. Ostomy functioning well. Pain under adequate control. (2) Peristomal hernia ICD Codes: K46.9 - Unspecified abdominal hernia without obstruction or gangrene Status: Chronic Plan: Status post repair of the peristomal hernia. Ileostomy functioning well. (3) Elevated blood-pressure reading without diagnosis of hypertension ICD Codes: R03.0 - Elevated blood-pressure reading, without diagnosis of hypertension Status: Acute Plan: Blood pressure remains variable but improved since patient has been receiving the alprazolam. Will hold off on any further antihypertensive medication as patient normally does not need it at home. I believe her elevation in blood pressure was due to situational anxiety from being in the hospital. Home health will be monitoring her vital signs at home. (4) Anxiety as acute reaction to exceptional stress ICD Codes: F41.1 - Generalized anxiety disorder; F43.0 - Acute stress reaction Status: Acute Plan: Anxiety under better control with alprazolam. Patient has alprazolam to use as needed at home. I do not believe she will need it on a regular basis once she returns home. (5) Hypokalemia ICD Codes: E87.6 - Hypokalemia Status: Acute Plan: the patient will receive potassium chloride ER this morning. Will send her home with seven-day supply of potassium supplement. Will have home health check electrolytes in one week. (6) Hyponatremia ICD Codes: E87.1 - Hyponatremia Status: Acute Plan: Sodium level should improve with improved oral intake. Home health will check electrolytes in one week. Evan Mccurdy MD Aug 28, 2017 09:47
[2017-08-28] MEDS ORDERED: POTA10CA PO (09:52)
[2017-08-28] MEDS ORDERED: ALPR0.25 PO (09:52)
--- NOTE | 2017-08-28 09:59 | HHI.DS ---
Discharge Summary Admission Date Aug 22, 2017 at 22:36 Discharge Date: Aug 28, 2017 Admitting Diagnosis abd pain, vomiting, ? hernia containing gallbladder (1) gallbladder incarceration Diagnosis: Principal (2) Parastomal hernia of ileal conduit Diagnosis: Secondary ICD Codes: K94.19 - Other complications of enterostomy (3) Elevated blood-pressure reading without diagnosis of hypertension Diagnosis: Secondary ICD Codes: R03.0 - Elevated blood-pressure reading, without diagnosis of hypertension Status: Acute (4) Anxiety as acute reaction to exceptional stress Diagnosis: Secondary ICD Codes: F41.1 - Generalized anxiety disorder; F43.0 - Acute stress reaction Status: Acute (5) Hypokalemia Diagnosis: Secondary ICD Codes: E87.6 - Hypokalemia Status: Acute (6) Hyponatremia Diagnosis: Secondary ICD Codes: E87.1 - Hyponatremia Status: Acute Procedures 08/24/17-cholecystectomy/repair peristomal hernia-Dr. Ferrer Brief History 82-year-old white female well-known to [facility] physician presented to emergency department with sudden onset of abdominal pain beginning after lunch on the day of admission. She had no nausea or vomiting. Patient has a history in the past of incarceration of a peristomal hernia from an ileal conduit, however, this pain was more severe and different than the prior discomfort. In the emergency department, CT scan revealed cystic mass within the hernia likely consistent with an incarcerated gallbladder. The patient was admitted to medical surgical bed, surgical consultation was placed and patient made nothing by mouth. She was provided with IV fluids and IV narcotic analgesics. CBC/BMP: 08/27/17 1225 Significant Findings Laboratory Tests Test 08/27/17 12:25 Creatinine 1.20 MG/DL (0.50-1.00) Random Glucose 119 MG/DL (74-106) Sodium Level 129 MEQ/L (136-145) Potassium Level 3.3 MEQ/L (3.5-5.1) Chloride Level 96 MEQ/L (98-107) Estimat Glomerular Filtration Rate 43 ML/MIN (>89) Hospital Course The patient was admitted to medical surgical bed. She was seen in consultation by Dr. Ferrer who felt the patient would benefit from cholecystectomy and repair of her peristomal hernia. Per the patient's request, he consult with Dr. Sparks, the patient's colorectal surgeon, who agreed with proceeding with the surgery. The patient underwent the procedure on August 24, 2017. She had an uncomplicated intraoperative and postoperative course. The patient had total resolution of the initial pain after the surgery. Gallbladder was found to be gangrenous but intact. The patient was returned to her usual room. She tolerated a regular diet. Ostomy continued to function is normal. Postoperative pain was under good control current medication. She did experience some anxiety which was treated with alprazolam. Blood pressure was variable and clonidine was ordered to be used as needed for elevated blood pressure readings. The patient's laboratory studies on the day prior to discharge revealed hypokalemia with potassium of 3.4 and 6 hyponatremia with sodium 129. Patient was asymptomatic. She was provided with potassium supplement orally prior to discharge. On the day discharge, the patient was ambulating independently in the room. Her urine output was excellent. Ileostomy was functioning well. Pain was under adequate control with oral medications. She had a strong desire to be discharged home. It was felt that she had obtained maximum benefit from this hospitalization. She was discharged home in good condition with instructions to increase activity as tolerated. Home health was ordered to assist the patient with care of her surgical incision and to evaluate her for physical and occupational therapy. The patient would have a regular diet. Her discharge medications are included on the medication reconciliation sheet. Of note, she was placed on potassium chloride ER 10 mg tablets 1 tablet daily for 1 week. Home health would check electrolytes in one week. The patient was given instructions to notify her physician if there is any recurrent abdominal pain, nausea, vomiting or temperature >100.5F. The patient would have a follow-up appointment with Dr. Ferrer in 5 days after discharge. She will follow-up with Dr. Mccurdy in 10 days after discharge. Pt Condition on Discharge: Good Discharge Disposition: Discharge Home Discharge Instructions DIET: Follow Instructions for: As Tolerated, No Restrictions Activities you can perform: Regular-No Restrictions Evan Mccurdy MD Aug 28, 2017 09:59
[2017-08-28] MEDS ORDERED: POTASSIUM CHLORIDE 20 MEQ CONTROLLED RELEASE TAB PO ONE (10:00)
[2017-08-28 10:16] VITALS: O2SAT 98
[2017-08-28] MEDS: ALPRAZolam 0.25 MG TAB PO SCH (10:35)
[2017-08-28] MEDS: LISINOPRIL 10 MG TAB PO SCH (10:36)
--- NOTE | 2017-08-28 13:16 | HHI.PR ---
Subjective Subjective Notes pain controlled, + BM from stoma Objective Vitals/I&O Vital Signs Date Time Temp Pulse Resp B/P (MAP) Pulse Ox O2 Delivery O2 Flow Rate FiO2 08/28/17 10:16 98 08/28/17 08:00 96.6 66 17 174/71 (105) 08/26/17 17:30 21 08/24/17 12:45 Room Air 08/24/17 12:15 2 Radiology Last 48 hours Impressions Abdomen/Pelvis CT 08/22/17 1911 Signed Impressions: Service Date/Time: Tuesday, August 22, 2017 20:38 - CONCLUSION: 1. 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 2. Status post colectomy. 3. Cystic areas in the left lobe of the liver. 4. Status post vertebroplasty. 5. Status post right hip arthroplasty. 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 tolerating PO, pain controlled on oral meds, ok to DC home Rj Grey MD Aug 28, 2017 13:16
== END 2017-08-28 12:24 | disposition home or self-care (01) | DRG 415 ==
LOC: NEPE 18:44 → NEDA 22:36 → N07A 23:40
PROVIDERS: ADMIT Family Medicine; ATTEND Family Medicine
PROC: 0WUF0JZ Supplement Abdominal Wall with Synthetic Substitute, Open Approach (ICD-10-PCS; 2017-08-24)
PROC: 0FT40ZZ Resection of Gallbladder, Open Approach (ICD-10-PCS; principal; 2017-08-24 09:55)
DX: K81.0 Acute cholecystitis (principal); K43.3 Parastomal hernia with obstruction, without gangrene; E87.1 Hypo-osmolality and hyponatremia; N18.3 Chronic kidney disease, stage 3 (moderate); K94.19 Other complications of enterostomy; R03.0 Elevated blood-pressure reading, without diagnosis of hypertension; F43.0 Acute stress reaction; E87.6 Hypokalemia; H40.9 Unspecified glaucoma; M81.0 Age-related osteoporosis without current pathological fracture; M15.9 Polyosteoarthritis, unspecified; Z88.5 Allergy status to narcotic agent; Z85.3 Personal history of malignant neoplasm of breast; Z87.310 Personal history of (healed) osteoporosis fracture; Z88.1 Allergy status to other antibiotic agents; Z90.49 Acquired absence of other specified parts of digestive tract; Z96.641 Presence of right artificial hip joint
CPT/HCPCS: 74177; 80048; 80053; 81001; 83690; 85025; 88302; 88304; 93005; 96361; 96374; 96375; C1781; J0131; J0690; J1170; J2270; J2405; J2543; J7030; Q9967

== ENCOUNTER 2018-01-29 11:42 | Emergency (ER) | payer MEDICARE, OTHER ==
[~2018-01-29] VITALS: Ht 165.1 cm; Wt 65.0 kg
[~2018-01-29 11:42] MED LIST changes: +ALPR0.25 PO; +CHOL10008 PO; +DENO60P SQ; +HYDR-3516 PO; -[UNRECOGNIZED DRUG - OTHER] PO
[2018-01-29 11:54] VITALS: BP 192/81; PULSE 70; RESP 15; TEMP 97.8; O2SAT 95
[2018-01-29 12:00] VITALS: RESP 16; O2SAT 99
--- NOTE | 2018-01-29 12:06 | PD ---
HPI Chief Complaint: Abdominal Pain Time Seen by Provider: 11:57 Travel History International Travel<30 days: No Contact w/Intl Traveler<30days: No Traveled to known affect area: No History of Present Illness HPI 82-year-old female with history of ulcerative colitis, bowel resection, with colostomy, presents emergency department today for evaluation of abdominal pain. Patient states yesterday that she had no output through her colostomy. She states that she did everything she knew how. She massaged her abdomen, drink more fluids, took laxative with no improvement of her symptoms. Today she states she has had some output. She states she has developed a generalized upper abdominal pain, intermittently sharp and stabbing. She states with this she gets diaphoretic and nauseous. She has not vomited. She denies any fever or chills. She has no other symptoms to report. PFSH Past Medical History Arthritis: Yes Autoimmune Disease: No Blood Disorders: No Anxiety: Yes Depression: No Heart Rhythm Problems: No Cancer: No Cardiac Catheterization: No Cardiovascular Problems: No High Cholesterol: No Chemotherapy: No Chest Pain: No Congestive Heart Failure: No Diabetes: No Diminished Hearing: No Endocrine: No Gastrointestinal Disorders: Yes (ulcerative colitis) GERD: No Glaucoma: Yes Genitourinary: No Hepatitis: No Hiatal Hernia: No Hypertension: No Immune Disorder: No Implanted Vascular Access Dvce: Yes Medical other: Yes (ILEOSTOMY) Musculoskeletal: Yes Neurologic: No Psychiatric: No Reproductive: No Respiratory: No Myocardial Infarction: No Radiation Therapy: No Thyroid Disease: No Ulcer: No Influenza Vaccination: Yes ?: Not Menopausal: Yes Past Surgical History Abdominal Surgery: Yes (ILEOSTOMY) AICD: No Arteriovenous Shunt: No Cardiac Surgery: No Coronary Artery Bypass Graft: No Ear Surgery: No Endocrine Surgery: No Eye Surgery: Yes (GREGORY CATARACTS REMOVED) Genitourinary Surgery: No Gynecologic Surgery: Yes (left breast lumpectomy surgery for gregory ovarian cyst AND RIGHT BREAT LUMPEC ) Hysterectomy: Yes Insulin Pump: No Joint Replacement: Yes (right hip hardware) Neurologic Surgery: No Oral Surgery: No Pacemaker: No Thoracic Surgery: No Other Surgery: Yes (HIP SURGERY,1993,HYSTERECTOMY) Social History Alcohol Use: No Tobacco Use: No Substance Use: No Allergies-Medications (Allergen,Severity, Reaction): Coded Allergies: bacitracin (Unverified Allergy, Mild, 09/17/17) unknown reaction gramicidin D (Unverified Allergy, Mild, 09/17/17) unknown reaction neomycin (Unverified Allergy, Mild, 09/17/17) unknown reaction polymyxin B (Unverified Allergy, Mild, 09/17/17) unknown reaction hydromorphone (Unverified Adverse Reaction, Intermediate, nausea / dizzy, 09/17/17) Reported Meds & Prescriptions Reported Meds & Active Scripts Active Alprazolam 0.25 Mg Tab 0.25 Mg PO Q8H PRN 1/2-1 tablet every 8 hrs as needed for anxiety Reported Vitamin D3 (Cholecalciferol) 1,000 Unit Cap 1,000 Units PO BID Ocuvite (Multiple Vitamins W/ Minerals) 1 Tab 1 Tab PO DAILY Prolia Inj (Denosumab) 60 Mg/Ml Inj 60 Mg SQ Q180D Biotin 1 Mg Cap 1 Mg PO Glucosamine & Chondroitin Cap (Glucosam/Chondr/Collagn/Hyalur) 1 Each Capsule 2 Tab PO DAILY Magnesium 400 Mg Tab 1,000 Mg PO DAILY Multi Vitamin Daily (Multiple Vitamin) 1 Tab Tab Vitamin E 200 Unit Cap 400 Units PO DAILY Calcium 500 +D (Calcium Carbonate-Cholecalciferol) 500-400 Mg-Unit Tab 1 Tab PO BID Review of Systems Except as stated in HPI: all other systems reviewed are Neg Physical Exam Narrative GENERAL: Well-nourished female patient, in no acute distress SKIN: Focused skin assessment warm/dry. HEAD: Atraumatic. Normocephalic. EYES: Pupils equal and round. No scleral icterus. No injection or drainage. ENT: No nasal bleeding or discharge. Mucous membranes pink and moist. NECK: Trachea midline. No JVD. CARDIOVASCULAR: Regular rate and rhythm. No murmur appreciated. RESPIRATORY: No accessory muscle use. Clear to auscultation. Breath sounds equal bilaterally. GASTROINTESTINAL: Abdomen soft, nondistended. Epigastric tenderness to palpation. No guarding. No rebound tenderness. There is a right colostomy in place. The stoma is red and beefy. There is brown liquid stool in the bag.. Hepatic and splenic margins not palpable. MUSCULOSKELETAL: No obvious deformities. No clubbing. No cyanosis. No edema. NEUROLOGICAL: Awake and alert. No obvious cranial nerve deficits. Motor grossly within normal limits. Normal speech. PSYCHIATRIC: Appropriate mood and affect; insight and judgment normal. Data Data Last Documented VS Vital Signs Date Time Temp Pulse Resp B/P (MAP) Pulse Ox O2 Delivery O2 Flow Rate FiO2 01/29/18 12:00 16 99 Room Air 01/29/18 11:54 97.8 70 192/81 (118) Orders Orders Complete Blood Count With Diff (01/29/18 12:04) Comprehensive Metabolic Panel (01/29/18 12:04) Lipase (01/29/18 12:04) Prothrombin Time / Inr (Pt) (01/29/18 12:04) Act Partial Throm Time (Ptt) (01/29/18 12:04) Urinalysis - C+S If Indicated (01/29/18 12:04) Iv Access Insert/Monitor (01/29/18 12:04) Ecg Monitoring (01/29/18 12:04) Oximetry (01/29/18 12:04) Sodium Chloride 0.9% Flush (Ns Flush) (01/29/18 12:15) Abdomen, Upright Only (01/29/18 12:04) Sodium Chlorid 0.9% 500 Ml Inj (Ns 500 M (01/29/18 12:15) Oral Contrast - Adult (01/29/18 12:14) Diatrizoate Liq ( Gastroview Liq) (01/29/18 12:36) Labs Laboratory Tests Test 01/29/18 12:20 White Blood Count 8.1 TH/MM3 Red Blood Count 4.63 MIL/MM3 Hemoglobin 14.2 GM/DL Hematocrit 42.0 % Mean Corpuscular Volume 90.9 FL Mean Corpuscular Hemoglobin 30.7 PG Mean Corpuscular Hemoglobin Concent 33.8 % Red Cell Distribution Width 14.0 % Platelet Count 230 TH/MM3 Mean Platelet Volume 8.1 FL Neutrophils (%) (Auto) 80.2 % Lymphocytes (%) (Auto) 10.9 % Monocytes (%) (Auto) 7.6 % Eosinophils (%) (Auto) 1.0 % Basophils (%) (Auto) 0.3 % Neutrophils # (Auto) 6.5 TH/MM3 Lymphocytes # (Auto) 0.9 TH/MM3 Monocytes # (Auto) 0.6 TH/MM3 Eosinophils # (Auto) 0.1 TH/MM3 Basophils # (Auto) 0.0 TH/MM3 CBC Comment DIFF FINAL Differential Comment Prothrombin Time 10.0 SEC Prothromb Time International Ratio 1.0 RATIO Activated Partial Thromboplast Time 25.4 SEC Urine Color YELLOW Urine Turbidity HAZY Urine pH 5.0 Urine Specific [place] 1.012 Urine Protein NEG mg/dL Urine Glucose (UA) NEG mg/dL Urine Ketones NEG mg/dL Urine Occult Blood NEG Urine Nitrite NEG Urine Bilirubin NEGATIVE Urine Urobilinogen LESS THAN 2.0 MG/DL Urine Leukocyte Esterase NEGATIVE Urine RBC 1 /hpf Urine WBC 1 /hpf Urine Bacteria RARE /hpf Microscopic Urinalysis Comment CULT NOT INDICATED Blood Urea Nitrogen 15 MG/DL Creatinine 1.01 MG/DL Random Glucose 93 MG/DL Total Protein 7.8 GM/DL Albumin 3.5 GM/DL Calcium Level 9.3 MG/DL Alkaline Phosphatase 100 U/L Aspartate Amino Transf (AST/SGOT) 18 U/L Alanine Aminotransferase (ALT/SGPT) 23 U/L Total Bilirubin 0.5 MG/DL Sodium Level 139 MEQ/L Potassium Level 4.1 MEQ/L Chloride Level 101 MEQ/L Carbon Dioxide Level 30.5 MEQ/L Anion Gap 8 MEQ/L Estimat Glomerular Filtration Rate 53 ML/MIN Lipase 226 U/L [facility] Medical Decision Making Medical Screen Exam Complete: Yes Emergency Medical Condition: Yes Medical Record Reviewed: Yes Differential Diagnosis Obstruction versus gastritis versus constipation versus ulcerative colitis Narrative Course 82-year-old female presents emergency department for evaluation. Patient appears without distress. She does have abdominal tenderness to palpation. She has a small amount of liquid brown stool in her colostomy bag. She appears nontoxic. Lab work is ordered and CT imaging as well. Prior to workup being complete and CT being performed, patient states that she is sleeping. She tells me she does not want to wait for this workup to be complete. I discussed with the patient the importance of staying and having a complete workup prior to discharge, reassuring her if everything was normal, she would absolutely be discharged home. She tells me she is not going to stay for this. Patient will be leaving AGAINST MEDICAL ADVICE. AMA: The risks of leaving against medical advice without further evaluation treatment were discussed with the patient. These risks include cardiac dysfunction, cardiac dysrhythmia, possible heart attack, possible stroke or . The patient indicated understanding of these risks and appeared to have the capacity to make this decision. Diagnosis Primary Impression: Right upper quadrant pain Disposition: 07 AGAINST MEDICAL ADVICE Condition: Stable Nancy Moore January 29, 2018 12:06
[2018-01-29] MEDS ORDERED: SODIUM CHLORID 0.9% 500 ML INJ 500 ML IV ONE (12:15)
[2018-01-29] MEDS ORDERED: SODIUM CHLORIDE 0.9% FLUSH 10 ML FLUSH IV FLUSH PRN (12:15)
[2018-01-29] MEDS ORDERED: DIATRIZOATE MEGLUM/DIATRIZOATE SOD 9 ML CUP ONE (12:36)
--- NOTE | 2018-01-29 12:42 | RADRPT ---
EXAM DATE/TIME: 01/29/2018 12:19 [place] COMPARISON: No previous studies available for comparison. INDICATIONS : Abdominal pain. MEDICAL HISTORY : None. SURGICAL HISTORY : Hysterectomy. Ileostomy, left breast lumpectomy ENCOUNTER: Initial ACUITY: 1 day PAIN SCORE: 10/10 LOCATION: Abdomen. FINDINGS: A single erect view of the upper abdomen demonstrates the lower lungs to be clear. No evidence of pn eumoperitoneum. No gas-distended loops of small bowel seen. CONCLUSION: No evidence of free air. Jermaine Carlin MD on January 29, 2018 at 12:40 Board Certified Radiologist. This report was verified electronically.
[2018-01-29 12:45] LABS: AUTOMATED NEUTROPHIL # 6.5 TH/MM3 (1.8-7.7); BASOPHIL % 0.3 % (0.0-2.0); EOSINOPHIL # 0.1 TH/MM3 (0-0.4); HEMOGLOBIN 14.2 GM/DL (11.6-15.3); LYMPH % 10.9 % (9.0-44.0); LYMPHOCYTE # 0.9 TH/MM3 (1.0-4.8); MEAN CELL VOLUME 90.9 FL (80.0-100.0); MEAN CORPUSCULAR HEMOGLOBIN 30.7 PG (27.0-34.0); MEAN CORPUSCULAR HGB CONC 33.8 % (32.0-36.0); MEAN PLATELET VOLUME 8.1 FL (7.0-11.0); MONO % 7.6 % (0.0-8.0); MONOCYTE # 0.6 TH/MM3 (0-0.9); NEUT % 80.2 % (16.0-70.0); PLATELET COUNT 230 TH/MM3 (150-450); RED BLOOD COUNT 4.63 MIL/MM3 (4.00-5.30); WHITE BLOOD COUNT 8.1 TH/MM3 (4.0-11.0)
[2018-01-29 13:17] LABS: ALBUMIN 3.5 GM/DL (3.4-5.0); ALT (GPT) 23 U/L (10-53); AST (GOT) 18 U/L (15-37); BICARBONATE 30.5 MEQ/L (21.0-32.0); BLOOD UREA NITROGEN 15 MG/DL (7-18); CALCIUM 9.3 MG/DL (8.5-10.1); CHLORIDE 101 MEQ/L (98-107); CREATININE 1.01 MG/DL (0.50-1.00); GLOMERULAR FILTRATION RATE 53 ML/MIN (>89); GLUCOSE,RANDOM 93 MG/DL (74-106); SODIUM (NA) 139 MEQ/L (136-145)
[2018-01-29 13:20] LABS: ALKALINE PHOSPHATASE 100 U/L (45-117); TOTAL BILIRUBIN ADULT 0.5 MG/DL (0.2-1.0); TOTAL PROTEIN 7.8 GM/DL (6.4-8.2)
[2018-01-29 13:40] LABS: BILIRUBIN, URINE NEGATIVE (NEG); BLOOD, URINE NEG (NEG); GLUCOSE,URINE NEG (NEG); KETONE, URINE NEG (NEG); NITRITE,URINE NEG (NEG); URINE COLOR YELLOW (YELLW/STRAW); URINE LEUKOCYTE ESTERASE NEGATIVE (NEG)
[2018-01-29 13:41] LABS: BACTERIA, URINE RARE /hpf
--- NOTE | 2018-01-29 14:01 | PD ---
Physical Exam Date Seen by Provider: January 29, 2018 Time Seen by Provider: 13:00 Narrative I, Dr. Pete, have reviewed the advance practice practitioner's documentation and am in agreement, met with the patient face to face, made the diagnosis, and the medical decision making was done by me. *My assessment and Findings: Patient seen and evaluated with nurse practitioner , please see nurse practitioner note for further details. She is coming in with abdominal discomfort, has a colostomy, and was initially tender in the upper abdomen on evaluation, colostomy bag putting out increased output. Vital signs are stable. Initial lab work was fairly unremarkable. X-ray did not show any obvious signs of obstruction. However, patient was scheduled for a CAT scan and while waiting for the CAT scan felt much better, her pain which she came in originally for has gone away. And she decided that she did not want to do the CAT scan, decided that she wants to leave AMA before workup is complete. I have talked to the patient regarding the fact that we would not be able to diagnose any acute intra-abdominal processes without doing CAT scan, and said acute intra-abdominal issues could cause further morbidity and possible mortality, patient states understanding but states she is feeling well. She should return if she changes her mind or feels worse. Patient states understanding. Laboratory Tests Test 01/29/18 12:20 Neutrophils (%) (Auto) 80.2 % (16.0-70.0) Lymphocytes # (Auto) 0.9 TH/MM3 (1.0-4.8) Urine Turbidity HAZY (CLEAR) Urine Bacteria RARE /hpf (NONE) Creatinine 1.01 MG/DL (0.50-1.00) Estimat Glomerular Filtration Rate 53 ML/MIN (>89) Last 24 hours Impressions Abdomen X-Ray 01/29/18 1204 Signed Impressions: Service Date/Time: Monday, January 29, 2018 12:19 - CONCLUSION: No evidence of free air. Jermaine Carlin MD Data Data Last Documented VS Vital Signs Date Time Temp Pulse Resp B/P (MAP) Pulse Ox O2 Delivery O2 Flow Rate FiO2 01/29/18 11:57 15 01/29/18 11:54 97.8 70 192/81 (118) 95 Orders Orders Complete Blood Count With Diff (01/29/18 12:04) Comprehensive Metabolic Panel (01/29/18 12:04) Lipase (01/29/18 12:04) Prothrombin Time / Inr (Pt) (01/29/18 12:04) Act Partial Throm Time (Ptt) (01/29/18 12:04) Urinalysis - C+S If Indicated (01/29/18 12:04) Ct Abd/Pel W Iv Contrast(Rout) (01/29/18 12:04) Iv Access Insert/Monitor (01/29/18 12:04) Ecg Monitoring (01/29/18 12:04) Oximetry (01/29/18 12:04) Sodium Chloride 0.9% Flush (Ns Flush) (01/29/18 12:15) Abdomen, Upright Only (01/29/18 12:04) Sodium Chlorid 0.9% 500 Ml Inj (Ns 500 M (01/29/18 12:15) Oral Contrast - Adult (01/29/18 12:14) Diatrizoate Liq ( Gastroview Liq) (01/29/18 12:36) Labs Laboratory Tests Test 01/29/18 12:20 White Blood Count 8.1 TH/MM3 Red Blood Count 4.63 MIL/MM3 Hemoglobin 14.2 GM/DL Hematocrit 42.0 % Mean Corpuscular Volume 90.9 FL Mean Corpuscular Hemoglobin 30.7 PG Mean Corpuscular Hemoglobin Concent 33.8 % Red Cell Distribution Width 14.0 % Platelet Count 230 TH/MM3 Mean Platelet Volume 8.1 FL Neutrophils (%) (Auto) 80.2 % Lymphocytes (%) (Auto) 10.9 % Monocytes (%) (Auto) 7.6 % Eosinophils (%) (Auto) 1.0 % Basophils (%) (Auto) 0.3 % Neutrophils # (Auto) 6.5 TH/MM3 Lymphocytes # (Auto) 0.9 TH/MM3 Monocytes # (Auto) 0.6 TH/MM3 Eosinophils # (Auto) 0.1 TH/MM3 Basophils # (Auto) 0.0 TH/MM3 CBC Comment DIFF FINAL Differential Comment Prothrombin Time 10.0 SEC Prothromb Time International Ratio 1.0 RATIO Activated Partial Thromboplast Time 25.4 SEC Urine Color YELLOW Urine Turbidity HAZY Urine pH 5.0 Urine Specific [place] 1.012 Urine Protein NEG mg/dL Urine Glucose (UA) NEG mg/dL Urine Ketones NEG mg/dL Urine Occult Blood NEG Urine Nitrite NEG Urine Bilirubin NEGATIVE Urine Urobilinogen LESS THAN 2.0 MG/DL Urine Leukocyte Esterase NEGATIVE Urine RBC 1 /hpf Urine WBC 1 /hpf Urine Bacteria RARE /hpf Microscopic Urinalysis Comment CULT NOT INDICATED Blood Urea Nitrogen 15 MG/DL Creatinine 1.01 MG/DL Random Glucose 93 MG/DL Total Protein 7.8 GM/DL Albumin 3.5 GM/DL Calcium Level 9.3 MG/DL Alkaline Phosphatase 100 U/L Aspartate Amino Transf (AST/SGOT) 18 U/L Alanine Aminotransferase (ALT/SGPT) 23 U/L Total Bilirubin 0.5 MG/DL Sodium Level 139 MEQ/L Potassium Level 4.1 MEQ/L Chloride Level 101 MEQ/L Carbon Dioxide Level 30.5 MEQ/L Anion Gap 8 MEQ/L Estimat Glomerular Filtration Rate 53 ML/MIN Lipase 226 U/L [facility] Medical Record Reviewed: Yes Supervised Visit with MELONY: Yes Diagnosis Primary Impression: Abdominal pain Disposition: 07 AGAINST MEDICAL ADVICE Condition: Stable Sangeetha Pete MD January 29, 2018 14:01
== END 2018-01-29 13:30 | disposition left against medical advice (07) ==
LOC: NEPE 11:42
DX: R10.11 Right upper quadrant pain (principal); Z53.21 Procedure and treatment not carried out due to patient leaving prior to being seen by health care provider; K51.90 Ulcerative colitis, unspecified, without complications; Z93.3 Colostomy status
CPT/HCPCS: 74018; 80053; 81001; 83690; 85025; 85610; 85730; 96360; 99284; J7040; Q9963